=== PATIENT | female | born 1980 | race Caucasian/White ===

== ENCOUNTER 2017-01-23 00:09 | Emergency (ER) | payer OTHER, SELFPAY | END 2017-01-23 01:19 | disposition home or self-care (01) | PROVIDERS: Emergency Provider Emergency Medicine; Family Provider Emergency Medicine; Visit Provider Emergency Medicine | DX: J40 Bronchitis, not specified as acute or chronic (principal); F17.210 Nicotine dependence, cigarettes, uncomplicated; Z79.899 Other long term (current) drug therapy; Z88.0 Allergy status to penicillin; Z88.8 Allergy status to other drugs, medicaments and biological substances | CPT/HCPCS: 71020; 87275; 87276; 94640; 99282 ==

== ENCOUNTER → 2017-03-03 11:08 | Outpatient (REF) | payer OTHER, SELFPAY ==
[2017-03-03 14:06] LABS: Amphetamine/Metha Screen,Urine Negative ng/mL (<1000); Barbiturates Screen,Urine Negative ng/mL (<200); Benzodiazepines Screen,Urine Negative ng/mL (200); Cannabinoid Screen,Urine Negative ng/mL (<50); Cocaine Screen,Urine Negative ng/g (<300); Methadone Screen,Urine Negative ng/mL (<300); Opiate Screen,Urine Negative ng/mL (<300); Phencyclidine Screen,Urine Negative ng/mL (<25)
== END ==
LOC: LAB 11:08
PROVIDERS: Visit Provider Emergency Medicine
DX: Z79.899 Other long term (current) drug therapy (principal)
CPT/HCPCS: 80305

== ENCOUNTER → 2017-06-06 16:03 | Outpatient (CLI) | payer OTHER, SELFPAY ==
[2017-06-06 18:33] LABS: Amphetamine/Metha Screen,Urine Negative ng/mL (<1000); Barbiturates Screen,Urine Negative ng/mL (<200); Benzodiazepines Screen,Urine Negative ng/mL (200); Cannabinoid Screen,Urine Negative ng/mL (<50); Cocaine Screen,Urine Negative ng/g (<300); Methadone Screen,Urine Negative ng/mL (<300); Opiate Screen,Urine Negative ng/mL (<300); Phencyclidine Screen,Urine Negative ng/mL (<25)
[2017-06-06 18:36] LABS: Basophils # 0.1 K/mm3 (0-0.2); Basophils % 0.8 % (0.1-2.0); Eosinophils # 0.3 K/mm3 (0.0-0.4); Eosinophils % 2.9 % (0.1-12.0); Hematocrit 41.4 % (37.0-47.0); Hemoglobin 13.6 g/dL (12.2-16.2); Lymphocytes # 3.2 K/mm3 (0.7-4.5); Lymphocytes % 32.6 K/mm3 (10-50); Mean Corpuscular HGB Conc 32.8 g/dL (31.8-35.4); Mean Corpuscular Hemoglobin 27.7 pg (27.0-31.2); Mean Corpuscular Volume 84.5 fl (81-99); Mean Platelet Volume 8.5 fl (7.4-10.4); Monocytes # 0.5 K/mm3 (0.1-1.0); Monocytes % 5.4 % (1.7-9.3); Neutrophils # 5.7 K/mm3 (1.8-7.8); Neutrophils % 58.3 % (37.0-80.0); Platelet Count 290 K/mm3 (142-424); Red Blood Count 4.89 M/mm3 (4.20-5.40); Red Cell Distribution Width 14.6 % (11.5-17.5); White Blood Count 9.8 K/mm3 (4.8-10.8)
[2017-06-06 18:59] LABS: Alanine Aminotransferase 22 U/L (12-78); Albumin Level 3.8 gm/dL (3.4-5.0); Albumin/Globulin Ratio 1.1 (1.1-1.8); Alkaline Phosphatase 91 U/L (46-116); Anion Gap 15.1 mEq/L (5-15); Aspartate Amino Transferase 18 U/L (15-37); Bilirubin,Total 0.2 mg/dL (0.2-1.0); Blood Urea Nitrogen 8 mg/dL (7-18); Calcium 9.6 mg/dL (8.5-10.1); Carbon Dioxide 24 mmol/L (21.0-32.0); Chloride 105 mmol/L (98-107); Chol/HDL Ratio 6.5 (1-3.5); Cholesterol 188 mg/dL (140-200); Creatinine,Serum 0.92 mg/dL (0.55-1.02); Estimated Glomerular Filt Rate 69 ml/min (>60); GFR (African American) 83 ML/MIN (>60); Globulin 3.6 gm/dl (1.3-3.2); HDL Cholesterol 29 mg/dL (29-89); LDL Cholesterol 108 mg/dL (0-130); Potassium 4.1 mmoL/L (3.5-5.1); Sodium 140 mmol/L (136-145); T4 (Thyroxine) 7.3 ug/dl (4.7-13.3); Thyroid Stimulating Hormone 1.22 uIU/ml (0.358-3.740); Total Protein,Serum 7.4 gm/dL (6.4-8.2); Triglycerides 254 mg/dL (30-200); VLDL Cholesterol 51 mg/dL (0-40)
[2017-06-06 19:04] LABS: Glucose 92 mg/dL (74-106)
[2017-06-08 15:09] LABS: Hep A Ab, IgM Negative (Negative); Hepatitis B Core Antibody IgM Negative (Negative); Hepatitis B Surface Antigen Negative (Negative)
[2017-06-11 06:13] LABS: Hepatitis C Antibody <0.1 s/co ratio (0.0-0.9)
== END ==
PROVIDERS: Visit Provider Emergency Medicine
DX: I10 Essential (primary) hypertension (principal); F41.9 Anxiety disorder, unspecified; Z79.899 Other long term (current) drug therapy
CPT/HCPCS: 80053; 80061; 80074; 80305; 84436; 84443; 85025

== ENCOUNTER → 2017-10-24 10:00 | Outpatient (CLI) | payer OTHER, SELFPAY ==
[2017-10-24 18:21] LABS: Amphetamine/Metha Screen,Urine Negative ng/mL (<1000); Barbiturates Screen,Urine Negative ng/mL (<200); Benzodiazepines Screen,Urine Negative ng/mL (<200); Cannabinoid Screen,Urine Negative ng/mL (<50); Cocaine Screen,Urine Negative ng/mL (<300); Methadone Screen,Urine Negative ng/mL (<300); Opiate Screen,Urine Negative ng/mL (<300); Phencyclidine Screen,Urine Negative ng/mL (<25)
== END ==
PROVIDERS: Visit Provider Nurse Practitioner Family
DX: Z79.899 Other long term (current) drug therapy (principal)
CPT/HCPCS: 80305

== ENCOUNTER → 2018-01-20 18:21 | Outpatient (CLI) | payer OTHER, SELFPAY ==
[2018-01-20 20:05] LABS: Amphetamine/Metha Screen,Urine Negative ng/mL (<1000); Barbiturates Screen,Urine Negative ng/mL (<200); Benzodiazepines Screen,Urine Negative ng/mL (<200); Cannabinoid Screen,Urine Negative ng/mL (<50); Cocaine Screen,Urine Negative ng/mL (<300); Methadone Screen,Urine Negative ng/mL (<300); Opiate Screen,Urine Negative ng/mL (<300); Phencyclidine Screen,Urine Negative ng/mL (<25)
[2018-01-28 07:26] LABS: Alprazolam Negative (Cutoff=100); Benzodiazepines Positive ng/mL (Cutoff=100); Clonazepam Negative (Cutoff=100); Flurazepam Negative (Cutoff=100); Lorazepam Positive (.); Midazolam Negative (Cutoff=100); Temazepam Negative (Cutoff=100); Triazolam Negative (Cutoff=100)
== END ==
PROVIDERS: Visit Provider Nurse Practitioner Family
DX: F41.9 Anxiety disorder, unspecified (principal); Z79.899 Other long term (current) drug therapy
CPT/HCPCS: 80305; 80346

== ENCOUNTER 2018-01-26 04:54 | Observation (INO) ==
[2018-01-26 05:15] LABS: Microscopic, Urine URINE MICROSCOPIC (MICROSCOPIC)
[2018-01-26 05:16] LABS: Appearance,Urine CLEAR (Clear); Bilirubin,Urine Negative (Negative); Blood, Urine 1+ (Negative); Color,Urine YELLOW (Yellow); Glucose,Urine (UA) Negative (Negative); Ketones,Urine Negative (Negative); Leukocyte Esterase,Urine Negative (Negative); Protein,Urine Negative (Negative); Specific Gravity, Urine >= 1.030 (1.005-1.030); Urobilinogen,Urine 0.2 EU/dl (0.2)
[2018-01-26 05:18] LABS: Squamous Epithelial Cell,Urine 20-50 #/hpf (0-5)
[2018-01-26 05:19] LABS: Basophils # 0.1 K/mm3 (0-0.2); Basophils % 0.5 % (0.1-2.0); Eosinophils # 0.4 K/mm3 (0.0-0.4); Eosinophils % 2.2 % (0.1-12.0); Hematocrit 41.3 % (37.0-47.0); Lymphocytes # 5.5 K/mm3 (0.7-4.5); Lymphocytes % 31.5 % (10-50); Mean Corpuscular HGB Conc 31.5 g/dL (31.8-35.4); Mean Corpuscular Hemoglobin 28.6 pg (27.0-31.2); Mean Corpuscular Volume 90.9 fl (81-99); Mean Platelet Volume 7.8 fl (7.4-10.4); Monocytes # 0.8 K/mm3 (0.1-1.0); Monocytes % 4.4 % (1.7-9.3); Neutrophils # 10.7 K/mm3 (1.8-7.8); Neutrophils % 61.3 % (37.0-80.0); Platelet Count 310 K/mm3 (142-424); Red Blood Count 4.54 M/mm3 (4.20-5.40); Red Cell Distribution Width 14.5 % (11.5-17.5); White Blood Count 17.5 K/mm3 (4.8-10.8)
[2018-01-26 05:27] LABS: Albumin Level 3.6 gm/dL (3.4-5.0); Albumin/Globulin Ratio 0.8 (1.1-1.8); Anion Gap 15.6 mEq/L (5-15); Bilirubin,Total 0.1 mg/dL (0.2-1.0); Calcium 8.9 mg/dL (8.5-10.1); Globulin 4.3 gm/dl (1.3-3.2); Potassium 3.6 mmoL/L (3.5-5.1); Total Protein,Serum 7.9 gm/dL (6.4-8.2)
[2018-01-26 05:31] LABS: Eosinophils % 1 % (0-3); Lymphocytes % 25 % (10-50); Monocytes % 2 % (2-9); Neutrophils % 70 % (42-76); RBC Morphology Normal; Total Cells Counted 100; Toxic Granulation 1+
--- NOTE | 2018-01-26 08:10 | Emergency Department Note ---
ED Disposition Clinical Impression: Tobacco use Cholecystitis with cholelithiasis Qualifiers: Cholelithiasis location: gallbladder Cholecystitis acuity: acute Biliary obstruction: without biliary obstruction Qualified Code(s): K80.00 - Calculus of gallbladder with acute cholecystitis without obstruction Hypertension Qualifiers: Hypertension type: essential hypertension Qualified Code(s): I10 - Essential (primary) hypertension Disposition: Admitted as Observation Condition on Discharge: Good Instructions: DI for Acute Abdomen Referrals: Farrukh Gu MD [Primary Care Provider] - - Critical Care Critical Care Time: No Attestation: On 01/26/18, the high probability of a clinically significant, sudden or life threatening deterioration of the following system(s) required my full and direct attention, intervention and personal management. The time I documented below is in addition to time spent performing reported procedures but includes the following listed in this critical care notation. Medical Decision Making - Medical Records Medical records reviewed: Yes: I reviewed the patient's medical records. - Raheem Inquiry Pt receiving controlled substance: No Vital Signs: 01/26/18 04:55 01/26/18 04:57 01/26/18 05:55 Temperature 98.4 F 98.4 F Temperature Source Oral Oral Pulse Rate [Right Brachial] 88 88 88 Respiratory Rate 15 15 16 Blood Pressure [Right Arm] 159/94 H 159/94 H 152/72 H Blood Pressure Mean [Right Arm] 115 115 98 Blood Pressure Source [Right Arm] Automatic Cuff Blood Pressure Position [Right Arm] Supine 02 Sat by Pulse Oximetry 98 98 98 Oxygen Delivery Method Room Air 01/26/18 07:00 Temperature Temperature Source Pulse Rate [Right Brachial] 84 Respiratory Rate 15 Blood Pressure [Right Arm] 149/74 H Blood Pressure Mean [Right Arm] 99 Blood Pressure Source [Right Arm] Blood Pressure Position [Right Arm] 02 Sat by Pulse Oximetry 98 Oxygen Delivery Method - Lab Data Lab results reviewed: Yes: I reviewed the patient's lab results. Lab Results 01/26/18 05:05: Urine Color Yellow, Urine Appearance Clear, Urine pH 6.0, Ur Specific [place] >= 1.030, Urine Protein Negative, Urine Glucose (UA) Negative, Urine Ketones Negative, Urine Blood 1+, Urine Nitrate Negative, Urine Bilirubin Negative, Urine Urobilinogen 0.2, Ur Leukocyte Esterase Negative, Urine RBC 5- 10, Ur Squamous Epith Cells 20-50 01/26/18 05:05: WBC 17.5 H, RBC 4.54, Hgb 13.0, Hct 41.3, MCV 90.9, MCH 28.6, MCHC 31.5 L, RDW 14.5, Plt Count 310, MPV 7.8, Neut % (Auto) 61.3, Lymph % (Auto) 31.5, [place] % (Auto) 4.4, Eos % (Auto) 2.2, Baso % (Auto) 0.5, Neut # (Auto) 10.7 H, Lymph # (Auto) 5.5 H, [place] # (Auto) 0.8, Eos # (Auto) 0.4, Baso # (Auto) 0.1, Total Counted 100, Neutrophils % (Manual) 70, Band Neutrophils % 2.0, Lymphocytes % (Manual) 25, Monocytes % (Manual) 2, Eosinophils % (Manual) 1, Toxic Granulation 1+, Platelet Estimate Normal, RBC Morphology Normal 01/26/18 05:05: Urine HCG, Qual Negative 01/26/18 05:05: Sodium 137, Potassium 3.6, Chloride 103, Carbon Dioxide 22, Anion Gap 15.6 H, BUN 15, Creatinine 1.31 H, Estimated Creat Clear 55, Estimated GFR 45 L, Est GFR ( Amer) 55 L, Glucose 108 H, Calcium 8.9, Total Bilirubin 0.1 L, AST 17, ALT 29, Alkaline Phosphatase 100, Total Protein 7.9, Albumin 3.6, Globulin 4.3 H, Albumin/Globulin Ratio 0.8 L, Amylase 53, Lipase 141 Result diagrams: 01/26/18 05:05 01/26/18 05:05 Orders (Tests/Meds): ED MEDICATIONS Generic Name Dose Route Start Last Admin Trade Name Freq PRN Reason Stop Dose Admin Sodium Chloride 1,000 mls @ 999 mls/hr 01/26/18 05:15 01/26/18 05:13 Sod Chlor 0.9% 1000ml Bag IV 01/26/18 06:15 999 mls/hr .Q1H1M TANO Administration Discontinued Medications Generic Name Dose Route Start Last Admin Trade Name Freq PRN Reason Stop Dose Admin Famotidine 20 mg 01/26/18 05:03 01/26/18 05:12 Pepcid 20mg/2ml Vial IV 01/26/18 05:04 20 mg ONCE ONE Administration Ketorolac Tromethamine 30 mg 01/26/18 05:03 01/26/18 05:12 Toradol 30mg/Ml Vial IV 01/26/18 05:04 30 mg ONCE ONE Administration Metoclopramide HCl 10 mg 01/26/18 05:04 01/26/18 05:12 Reglan 10mg/2ml Vial IVP 01/26/18 05:05 10 mg ONCE ONE Administration Ondansetron HCl 4 mg 01/26/18 05:03 01/26/18 05:12 Zofran 4mg/2ml Vial IV 01/26/18 05:04 4 mg ONCE ONE Administration ORDERS Category Date Time Status CT abdomen pelvis wo con Stat Cat Scan 01/26/18 05:03 Taken US gallbladder Stat Exams 01/26/18 07:00 Ordered Urinalysis and Microscopic Stat Lab 01/26/18 05:05 Ordered - CT Data CT Scan: Abdomen, Pelvis Time Received: 08:[address] Reviewed: Yes: I have viewed the radiologist's interpretation Preliminary Findings: Abnormal (see report) - US Data US Images: Gallbladder ED US Reviewed: Yes: I have viewed radiologist's interpretation Preliminary Findings: Gall Bladder Stones, Thick Gall Bladder Wall - Physician Consults Physician Consulted: allran Reason -: Pt condition Nausea/Vomiting/Diarrhea HPI - General Chief complaint: Abdominal Pain Stated complaint: Upper Abdominal Pain Time Seen by Provider: 01/26/18 05:30 Mode of Arrival: Ambulatory Source of Information: Patient, Spouse, Medical Record Limitations: No Limitations Description of Symptoms (Recalled from ER Triage Doc. by RN): Pt c/o mid abdominal pain intermittenly for 2-3 days. Reports constipation, and low urine output. Reports this morning it woke her up with sharp excrutiating pain. Reports no difficulty with urination when she goes. Denies any n/v/d. - History of Present Illness HPI Narrative: increased rt upper abd pain over the last 3 days with n/v MD complaint: nausea, vomiting, abdominal pain Onset (ago): day(s) Associated Abdominal Pain: Yes Location of pain: RUQ Severity: moderate Quality: sharp Consistency: colicky Associated symptoms: nausea/vomiting - Related Data Previous Rx's Medication Instructions Recorded lisinopril 10 mg tablet 10 mg PO DAILY #90 tab 01/20/18 lorazepam 0.5 mg tablet 0.5 mg PO BID #60 tab 01/20/18 sertraline 25 mg tablet 50 mg PO QHS #30 tab 01/20/18 Allergies Allergy/AdvReac Type Severity Reaction Status Date / Time aspirin [ASPIRIN] Allergy Mild Verified 01/20/18 15:42 Penicillins Allergy Verified 01/20/18 15:42 zonisamide [From Zonegran] Allergy Hives Verified 01/20/18 15:42 [facility] History - Hepatitis A Screen Drug use history?: No High risk sexual behaviors?: No History of sexually transmitted infection?: No Currently employed?: No Childcare worker?: No Do you have indoor plumbing?: Yes Do you have electricity?: Yes Attestation statement:: This patient has been screened for Hepatitis A risk factors. I have reviewed the patient's past medical history: Yes Medical History: Reports:: Anxiety, Depression, Hypertension Denies:: Cancer, Diabetes Mellitus Type 1, Diabetes Mellitus Type 2, MRSA Other Medical History: Reports: Anemia Other Surgeries: Yes: Tubal Ligation, Other (ectopic preg, salpingectomy macho) Amputation: No Fractures: No Comment: anxiety, depression - Social History Smoking Status: Current every day smoker Tobacco Type: cigarettes Alcohol Intake: never Substance Use Type: denies use - Psychiatric History Expresses thoughts of harming self/others: None Suicide Plan Description: No Plan Pschychiatric History:: Reports:: Anxiety, Depression Family Hx:: Cancer, Heart Attack ROS Obtained: Yes All systems reviewed & no additional complaints - Constitutional Constitutional: Denies fever(s) - Eyes Eyes: Denies change in vision - ENT Ears, Nose, Mouth, and Throat: Denies sore throat - Cardiovascular Cardiovascular: Denies chest pain - Respiratory Respiratory: No cough - Gastrointestinal Gastrointestingal: Reports: as per HPI, abdominal pain, nausea, vomiting. Denies: black, tarry stools - Genitourinary Female Genitourinary: Denies hematuria - Musculoskeletal Musculoskeletal: Denies back pain - Integumentary/Breasts Skin/Breast: Denies rash - Neurologic Neurologic: Denies seizure-like activity Physical Exam - General General appearance: alert - Head Head exam: normocephalic - Eye Eye exam: Present: PERRL, EOMI - ENT ENT exam: Present: mucous membranes dry - Neck Neck exam: Present: trachea midline - Respiratory Respiratory exam: Present: normal lung sounds bilaterally. Absent: respiratory distress - Cardiovascular Cardiovascular exam: Present: regular rate. Absent: systolic murmur - Abdominal Exam Abdominal exam: Present: soft, tenderness Abdominal tenderness: Present: RUQ, moderate - Extremities Exam Extremities exam: Present: full ROM - Neurological Exam Neurological exam: Present: alert, oriented X3, CN II-XII intact - Psychiatric Psychiatric exam: Present: normal affect - Skin Skin exam: Absent: rash
--- NOTE | 2018-01-26 08:26 | Pharmacy Consult Notes ---
[facility] Pharmacy VTE Monitoring - Patient Demographics Admission date: 01/26/18 Report Date: 01/26/18 Time: 08:26 Allergies/Adverse Reactions: Patient Allergies aspirin [ASPIRIN] Allergy (Mild, Verified 01/20/18 15:42) Penicillins Allergy (Verified 01/20/18 15:42) zonisamide [From Zonegran] Allergy (Verified 01/20/18 15:42) Hives Height: 1.57 m Weight: 60.328 kg Patient Problems: Current Active Problems Cholecystitis with cholelithiasis (Acute) Tobacco use (Acute) Hypertension (Acute) - VTE Risk Labs: VTE Related Lab Results Hgb 13.0 g/dL (12.2-16.2) 01/26/18 05:05 Hct 41.3 % (37.0-47.0) 01/26/18 05:05 Plt Count 310 K/mm3 (142-424) 01/26/18 05:05 BUN 15 mg/dL (7-18) 01/26/18 05:05 Creatinine 1.31 mg/dL (0.55-1.02) H 01/26/18 05:05 Estimated Creat Clear 55 mL/min (50-200) 01/26/18 05:05 - Prophylaxis VTE Prophylaxis Ordered?: Yes Types of VTE Prophylaxis: TEDS Knee High Location of Applied Device: Bilateral Lower Extremeties - VTE Diagnosis Confirmed Treatment or plan recommended: Continue Current Treatment
--- NOTE | 2018-01-26 12:07 | History & Physical Report ---
*Admission Date: 01/26/18 *Chief complaint: abd pain *History of present illness: this wf with progressive upper abd pain with n/v but no melena -pt was seen in the ed with abn ct and gb u/s and had continued pain and was admitted for iv meds and surg eval [facility] History I have reviewed the patient's past medical history: Yes Medical History: Reports:: Anxiety, Depression, Hypertension Denies:: Cancer, Diabetes Mellitus Type 1, Diabetes Mellitus Type 2, MRSA Other Medical History: Reports: Anemia Other Surgeries: Yes: Hysterectomy-Partial, Tubal Ligation, Other (ectopic preg, salpingectomy jace) Amputation: No Fractures: No - *Social History Educational Level: Completed GED/General Educational Development Smoking Status: Current every day smoker Tobacco Type: cigarettes # Packs/Day (cigarettes): 1 Alcohol Intake: never Substance Use Type: denies use Occupational Status: employed Household Members: spouse - Psychiatric History Expresses thoughts of harming self/others: None Suicide Plan Description: No Plan Pschychiatric History:: Reports:: Anxiety, Depression *Family Hx:: Cancer, Heart Attack Review of Systems - Review of Systems Review of systems:: pertinent systems reviewed and negative unless documented below - Constitutional Denies fever(s) - Eyes Denies blurry vision, Denies change in vision - ENT Denies sore throat - *Cardiovascular Denies chest pain - *Respiratory Denies cough - *Gastrointestinal Reports abdominal pain, Reports nausea, Reports vomiting - *Genitourinary Denies blood in urine - *Musculoskeletal Denies joint pain - Integumentary/Breasts Denies rash - *Neurologic Denies seizure-like activity - Psychiatric Denies anxiety Meds Home Medications Medication Instructions Recorded Confirmed Type Sertraline HCl 50 mg PO HS 01/26/18 01/26/18 History Allergies Allergy/AdvReac Type Severity Reaction Status Date / Time aspirin [ASPIRIN] Allergy Mild Verified 01/20/18 15:42 Penicillins Allergy Verified 01/20/18 15:42 zonisamide [From Zonegran] Allergy Hives Verified 01/20/18 15:42 Exam Vital signs and Labs for Last 24 Hours: Temp Pulse Resp BP Pulse Ox 98.3 F 81 16 138/81 100 01/26/18 10:06 01/26/18 10:06 01/26/18 10:06 01/26/18 10:06 01/26/18 10:06 Laboratory Results - last 24 hr 01/26/18 05:05: Urine Color Yellow, Urine Appearance Clear, Urine pH 6.0, Ur Specific [place] >= 1.030, Urine Protein Negative, Urine Glucose (UA) Negative, Urine Ketones Negative, Urine Blood 1+, Urine Nitrate Negative, Urine Bilirubin Negative, Urine Urobilinogen 0.2, Ur Leukocyte Esterase Negative, Urine RBC 5- 10, Ur Squamous Epith Cells 20-50 01/26/18 05:05: WBC 17.5 H, RBC 4.54, Hgb 13.0, Hct 41.3, MCV 90.9, MCH 28.6, MCHC 31.5 L, RDW 14.5, Plt Count 310, MPV 7.8, Neut % (Auto) 61.3, Lymph % (Auto) 31.5, [place] % (Auto) 4.4, Eos % (Auto) 2.2, Baso % (Auto) 0.5, Neut # (Auto) 10.7 H, Lymph # (Auto) 5.5 H, [place] # (Auto) 0.8, Eos # (Auto) 0.4, Baso # (Auto) 0.1, Total Counted 100, Neutrophils % (Manual) 70, Band Neutrophils % 2.0, Lymphocytes % (Manual) 25, Monocytes % (Manual) 2, Eosinophils % (Manual) 1, Toxic Granulation 1+, Platelet Estimate Normal, RBC Morphology Normal 01/26/18 05:05: Urine HCG, Qual Negative 01/26/18 05:05: Sodium 137, Potassium 3.6, Chloride 103, Carbon Dioxide 22, Anion Gap 15.6 H, BUN 15, Creatinine 1.31 H, Estimated Creat Clear 55, Estimated GFR 45 L, Est GFR ( Amer) 55 L, Glucose 108 H, Calcium 8.9, Total Jace irubin 0.1 L, AST 17, ALT 29, Alkaline Phosphatase 100, Total Protein 7.9, Albumin 3.6, Globulin 4.3 H, Albumin/Globulin Ratio 0.8 L, Amylase 53, Lipase 141 I & O for Last 24 hours: Intake & Output 01/24/18 01/25/18 01/26/18 01/27/18 11:59 11:59 11:59 11:59 Intake Total 1000 / 1000 Balance 1000 / 1000 Weight 137 lb 2 oz - Constitutional no acute distress - *Routine HEENT Exam Head: Present: normocephalic Eye: Present: EOMI, PERRL. Absent: conjunctival icterus ENT: Present: mucous membranes dry - *Routine Neck Exam Present: supple - *Routine Respiratory Exam Present: CTA bilaterally - *Routine Cardiovascular Exam Present: RRR. Absent: murmur - *Routine Abdominal Exam Present: soft, tenderness Comments: tender griffith sign - *Routine Extremities Exam Present: full ROM - *Routine Skin Exam Present: intact - *Routine Neurological Exam Present: alert, oriented X3, CN II-XII intact - Routine Psychiatric Exam Present: normal affect Assessment and Plan (1) Cholecystitis with cholelithiasis Current visit: Yes Status: Acute Qualifiers: Cholelithiasis location: gallbladder Cholecystitis acuity: acute Biliary obstruction: without biliary obstruction Qualified Code(s): K80.00 - Calculus of gallbladder with acute cholecystitis without obstruction Category: Medical Code(s): K80.10 - Calculus of gallbladder with chronic cholecystitis without obstruction
--- NOTE | 2018-01-26 14:14 | Progress Note ---
[facility] Anesthesia Checklist - Structural Data Admitted From: Inpatient Planned Operative Procedure/s: lap avery Consent for Planned Operative Procedure(s) Verified: Yes - Airway Assessment C-Spine Mobility Assessed: Yes TMJ Mobility Assessed: Yes Dentition: Edentulous - Neurological Assessment Level of Consciousness: Awake, Alert, Appropriate - Anesthesia Plan Anesthesia Risk discussed: Yes Anesthesia Plan: Verified ASA Class: II Anesthesia Type: General [facility] History I have reviewed the patient's past medical history: Yes Medical History: Reports:: Anxiety, Depression, Hypertension Denies:: Cancer, Diabetes Mellitus Type 1, Diabetes Mellitus Type 2, MRSA Other Medical History: Reports: Anemia Other Surgeries: Yes: Hysterectomy-Partial, Tubal Ligation, Other (ectopic preg, salpingectomy macho) Amputation: No Fractures: No - *Social History Educational Level: Completed GED/General Educational Development Smoking Status: Current every day smoker Tobacco Type: cigarettes # Packs/Day (cigarettes): 1 Alcohol Intake: never Substance Use Type: denies use Occupational Status: employed Household Members: spouse - Psychiatric History Expresses thoughts of harming self/others: None Suicide Plan Description: No Plan Pschychiatric History:: Reports:: Anxiety, Depression *Family Hx:: Cancer, Heart Attack
--- NOTE | 2018-01-26 16:07 | Operative Note ---
Date of procedure: 01/26/18 Pre-op Diagnosis:: Symptomatic gallstones Post-op Diagnosis:: Acute calculus cholecystitis Procedure performed:: Laparoscopic cholecystectomy Surgeon:: Juarez Ryan MD PROCESS PLANNER:: Viral Garcia Anesthesia: GETRomi Estimated blood loss (mL): 25 Clinical Note:: Patient is a 37-year-old white female. For a couple of days she has had some vague epigastric and right upper quadrant abdominal pain. However she had severe acute exacerbation early this morning. She presented to the emergency department. She underwent CT scan of the abdomen and pelvis which revealed findings of gallstones with gallbladder distention. She had a gallbladder ultrasound performed which revealed distended gallbladder with gallstones. Surgical consultation was obtained. Patient remained tender. Plan was made for admission for clinical cholecystitis for planned cholecystectomy. Operative findings:: She had appreciable hepatomegaly. She had a distended gallbladder. There was some minor pericholecystic fluid and a moderate amount of edema in the tissues around the gallbladder. There were a couple of moderately large gallstones. Operative note:: Consent was obtained and patient was taken to the operating room. She was given preoperative intravenous antibiotics. In the operating room she was placed in a supine position. General anesthesia was induced via endotracheal tube. Her abdomen was prepped and draped in the standard surgical fashion. Subumbilical skin incision was made in a previous laparoscopy scar. While performing abdominal wall lift Veress needle was inserted and CO2 pneumoperitoneum was achieved to 15 mmHg. 10/11 mm optical trocar was inserted at the umbilicus. Intraperitoneal contents were visualized. She was positioned in reverse Trendelenburg with left side down. A couple of 5 mm trochars were inserted in the right abdomen inferior to the edge of the liver which was appreciably enlarged. 10 mm trocar was inserted in the epigastrium. Gallbladder was identified and grasped and retracted anteriorly and superiorly over the dome of the liver. There were omental adhesions to the gallbladder which were taken down using blunt dissection. Neck of the gallbladder was retracted anterolaterally. The common duct was actually tented up and initially, for some time, discerning the anatomy was challenging. Dissection was carried out and ultimately the cystic duct and cystic artery were identified as the neck of the gallbladder was distended and there was an appreciable amount of edema in the surrounding tissues. Cystic duct was multiply clipped and then divided. Cystic artery was carefully coagulated and then divided. Gallbladder was dissected free from the liver in a retrograde fashion using EDUARDA ultrasonic harmonic luis f. Gallbladder was placed within an Endo Catch retrieval device and removed from the peritoneal cavity via the umbilical trocar site which required some stretching of the fascial incision for delivery. There was some minor oozing from the liver edge of the gallbladder fossa and good hemostasis was achieved with judicious use of laparoscopic electrocautery. Gallbladder fossa and perihepatic space were irrigated and aspirated until clear. Trochars were removed as CO2 pneumoperitoneum was evacuated. Fascia at the umbilicus was closed with 0 Vicryl [id number] suture as well as interrupted 0 Vicryl. Local anesthetic was infiltrated. Skin incisions were closed with 4-0 Monocryl in a subcuticular fashion. Steri-Strips and dressings were applied. Condition: stable Disposition: PACU Specimens:: Gallbladder and contents Complications:: None immediately apparent
--- NOTE | 2018-01-26 16:17 | Progress Note ---
[facility] Anesthesia Record Part II Discharge Time: 16:45 Destination: floor PACU nurse assessment reviewed?: Yes Patient Condition:: Good Anesthesia Complications:: None
--- NOTE | 2018-01-26 16:17 | Progress Note ---
[facility] Anesthesia Record Part I Intake, IV Amount: 2,000 Estimated blood loss (mL): 0 Urine output (mL): 0 Blood Pressure: 152/98 SaO2: 94 Pulse Rate: 103 Respiratory Rate: 12 Temperature: 98.5 F Patient is:: Awake, Stable Stable to PACU at:: 16:15
[2018-01-27 05:59] LABS: Basophils % 0.1 % (0.1-2.0); Eosinophils # 0.1 K/mm3 (0.0-0.4); Eosinophils % 0.8 % (0.1-12.0); Hematocrit 34.8 % (37.0-47.0); Hemoglobin 10.9 g/dL (12.2-16.2); Lymphocytes # 1.3 K/mm3 (0.7-4.5); Lymphocytes % 7.4 % (10-50); Mean Corpuscular HGB Conc 31.3 g/dL (31.8-35.4); Mean Corpuscular Hemoglobin 28.2 pg (27.0-31.2); Mean Corpuscular Volume 90.3 fl (81-99); Mean Platelet Volume 7.8 fl (7.4-10.4); Monocytes # 0.4 K/mm3 (0.1-1.0); Monocytes % 2.3 % (1.7-9.3); Neutrophils # 15.3 K/mm3 (1.8-7.8); Neutrophils % 89.4 % (37.0-80.0); Platelet Count 275 K/mm3 (142-424); Red Blood Count 3.85 M/mm3 (4.20-5.40); Red Cell Distribution Width 14.7 % (11.5-17.5); White Blood Count 17.1 K/mm3 (4.8-10.8)
[2018-01-27 06:04] LABS: Anion Gap 13.8 mEq/L (5-15); Calcium 8.4 mg/dL (8.5-10.1); Potassium 4.8 mmoL/L (3.5-5.1)
--- NOTE | 2018-01-27 06:47 | Progress Note ---
Subjective Patient reports: feels better Exam Vital signs and Labs for Last 24 Hours: Temp Pulse Resp BP Pulse Ox 98.3 F 98 H 15 135/85 97 01/27/18 03:46 01/27/18 03:46 01/27/18 03:46 01/27/18 03:46 01/27/18 03:46 Laboratory Results - last 24 hr 01/27/18 05:45: WBC 17.1 H, RBC 3.85 L, Hgb 10.9 L, Hct 34.8 L, MCV 90.3, MCH 28.2, MCHC 31.3 L, RDW 14.7, Plt Count 275, MPV 7.8, Neut % (Auto) 89.4 H, Lymph % (Auto) 7.4 L, [place] % (Auto) 2.3, Eos % (Auto) 0.8, Baso % (Auto) 0.1, Neut # (Auto) 15.3 H, Lymph # (Auto) 1.3, [place] # (Auto) 0.4, Eos # (Auto) 0.1, Baso # (Auto) 0.0 01/27/18 05:45: Sodium 138, Potassium 4.8 D, Chloride 106, Carbon Dioxide 23, Anion Gap 13.8, BUN 12, Creatinine 1.10 H, Estimated Creat Clear 70, Estimated GFR 56 L, Est GFR ( Amer) 67 D, Glucose 130 H, Calcium 8.4 L I & O for Last 24 hours: Intake & Output 01/24/18 01/25/18 01/26/18 01/27/18 11:59 11:59 11:59 11:59 Intake Total 1000 / 1000 4355 / 4355 Balance 1000 / 1000 4355 / 4355 Weight 137 lb 2 oz 140 lb 8 oz - *Routine Abdominal Exam Present: soft Comments: Dressings had some serosanguineous drainage. Steri-strips intact. Progress Note: A&P Assessment and Plan for All Diagnoses:: Okay for discharge home. Follow-up in about 2-3 weeks.
[2018-01-27 07:50] LABS: Lymphocytes % 7 % (10-50); Monocytes % 1 % (2-9); Neutrophils % 92 % (42-76); Total Cells Counted 100
--- NOTE | 2018-01-27 09:07 | Discharge Summary ---
General - General Admission date:: 01/26/18 Discharge date: 01/27/18 HPI HPI: this wf with progressive upper abd pain with n/v but no melena -pt was seen in the ed with abn ct and gb u/s and had continued pain and was admitted for iv meds and surg eval Hospital Course Hospital Course: Gallbladder removal-see op note Surgery consult-see note Will discharge home today follow-up with Dr. Ryan in 2-3 weeks. Objective Vital signs: Temp Pulse Resp BP Pulse Ox 98.4 F 100 H 17 157/90 H 100 01/27/18 08:00 01/27/18 08:00 01/27/18 08:00 01/27/18 08:00 01/27/18 08:00 no acute distress - *Routine HEENT Exam Head: Present: normocephalic Eye: Present: PERRL ENT: Present: mucous membranes moist - *Routine Respiratory Exam Present: CTA bilaterally - *Routine Cardiovascular Exam Present: RRR - *Routine Abdominal Exam Present: soft, normoactive bowel sounds, tenderness Comments: 4 surgical incisions with Steri-Strips in place no redness or drainage noted - *Routine Extremities Exam Present: full ROM - *Routine Skin Exam Comments: Surgery incisions with Steri-Strips no redness or drainage noted - *Routine Neurological Exam Present: alert, oriented X3 - Routine Psychiatric Exam Present: normal affect Results Labs on day of discharge: Labs from last 24 hours 01/27/18 01/27/18 05:45 05:45 WBC 17.1 H RBC 3.85 L Hgb 10.9 L Hct 34.8 L MCV 90.3 MCH 28.2 MCHC 31.3 L RDW 14.7 Plt Count 275 MPV 7.8 Neut % (Auto) 89.4 H Lymph % (Auto) 7.4 L Craig % (Auto) 2.3 Eos % (Auto) 0.8 Baso % (Auto) 0.1 Neut # (Auto) 15.3 H Lymph # (Auto) 1.3 Craig # (Auto) 0.4 Eos # (Auto) 0.1 Baso # (Auto) 0.0 Total Counted 100 Neutrophils % (Manual) 92 H Lymphocytes % (Manual) 7 L Monocytes % (Manual) 1 L Platelet Estimate Normal Sodium 138 Potassium 4.8 D Chloride 106 Carbon Dioxide 23 Anion Gap 13.8 BUN 12 Creatinine 1.10 H Estimated Creat Clear 70 Estimated GFR 56 L Est GFR ( Amer) 67 D Glucose 130 H Calcium 8.4 L - Additional Comments Rounded with Dr. Gu all orders per Riccardo DS: Diagnosis - Discharge Diagnosis (1) Cholecystitis with cholelithiasis Status: Acute Discharge Plan - Patient Discharge Instructions ACTIVITY: Continue current activity DIET: continue same diet - Follow up Plan Follow up with: Juraez Ryan MD [Staff Physician] - 02/13/18 Disposition: Home, Self-Long-Term Medications: Home Medications Medication Instructions Recorded Confirmed Type Sertraline HCl 50 mg PO HS 01/26/18 01/26/18 History Prescriptions/Medication Reconciliation: New Hydrocod/Acet 5/325 mg [[place] 5/325mg tablet] 1 - 2 tab PO Q6HP PRN #21 tab PRN Reason: Moderate Pain Continue lisinopril 10 mg tablet 10 mg PO DAILY #90 tab lorazepam 0.5 mg tablet 0.5 mg PO BID #60 tab Sertraline HCl 50 mg PO HS
== END 2018-01-27 10:00 | disposition home or self-care (01) ==
LOC: 2ND 04:54 → ER 04:54 → 2ND 09:44
PROVIDERS: ADMIT Emergency Medicine; ATTEND Emergency Medicine

== ENCOUNTER → 2018-05-05 14:25 | Outpatient (CLI) | payer OTHER, SELFPAY ==
[2018-05-05 14:34] LABS: Basophils # 0.1 K/mm3 (0-0.2); Basophils % 0.7 % (0.1-2.0); Eosinophils # 0.3 K/mm3 (0.0-0.4); Eosinophils % 2.4 % (0.1-12.0); Hematocrit 40.2 % (37.0-47.0); Lymphocytes # 3.2 K/mm3 (0.7-4.5); Lymphocytes % 30.4 % (10-50); Mean Corpuscular HGB Conc 32.2 g/dL (31.8-35.4); Mean Corpuscular Hemoglobin 27.9 pg (27.0-31.2); Mean Corpuscular Volume 86.5 fl (81-99); Mean Platelet Volume 8.3 fl (7.4-10.4); Monocytes # 0.4 K/mm3 (0.1-1.0); Neutrophils # 6.6 K/mm3 (1.8-7.8); Neutrophils % 62.4 % (37.0-80.0); Platelet Count 315 K/mm3 (142-424); Red Blood Count 4.65 M/mm3 (4.20-5.40); Red Cell Distribution Width 14.9 % (11.5-17.5); White Blood Count 10.6 K/mm3 (4.8-10.8)
[2018-05-05 15:22] LABS: Amphetamine/Metha Screen,Urine Negative ng/mL (<1000); Barbiturates Screen,Urine Negative ng/mL (<200); Benzodiazepines Screen,Urine Negative ng/mL (<200); Cannabinoid Screen,Urine Negative ng/mL (<50); Cocaine Screen,Urine Negative ng/mL (<300); Methadone Screen,Urine Negative ng/mL (<300); Opiate Screen,Urine Negative ng/mL (<300); Phencyclidine Screen,Urine Negative ng/mL (<25)
[2018-05-05 15:25] LABS: Alanine Aminotransferase 29 U/L (12-78); Albumin Level 3.7 gm/dL (3.4-5.0); Albumin/Globulin Ratio 0.9 (1.1-1.8); Alkaline Phosphatase 98 U/L (46-116); Anion Gap 17.1 mEq/L (5-15); Aspartate Amino Transferase 18 U/L (15-37); Bilirubin,Total 0.2 mg/dL (0.2-1.0); Blood Urea Nitrogen 10 mg/dL (7-18); Calcium 8.9 mg/dL (8.5-10.1); Carbon Dioxide 23 mmol/L (21.0-32.0); Chloride 104 mmol/L (98-107); Chol/HDL Ratio 7.9 (1-3.5); Cholesterol 221 mg/dL (140-200); Creatinine,Serum 0.99 mg/dL (0.55-1.02); Estimated Glomerular Filt Rate 63 ml/min (>60); Free T4 (Free Thyroxine) 0.91 ng/dl (0.76-1.46); GFR (African American) 76 ML/MIN (>60); Globulin 3.9 gm/dl (1.3-3.2); Glucose 84 mg/dL (74-106); HDL Cholesterol 28 mg/dL (29-89); LDL Cholesterol 147 mg/dL (0-130); Potassium 4.1 mmoL/L (3.5-5.1); Sodium 140 mmol/L (136-145); Total Protein,Serum 7.6 gm/dL (6.4-8.2); Triglycerides 232 mg/dL (30-200); VLDL Cholesterol 46 mg/dL (0-40)
[2018-05-07 12:58] LABS: Vitamin D 25 Hydroxy 10.1 ng/mL (30.0-100.0)
== END ==
LOC: LAB.DROPOF 14:26
PROVIDERS: Visit Provider Emergency Medicine
DX: Z79.899 Other long term (current) drug therapy (principal); I10 Essential (primary) hypertension
CPT/HCPCS: 80053; 80061; 80305; 82652; 84439; 84443; 85025

== ENCOUNTER → 2018-09-01 17:58 | Outpatient (CLI) | payer OTHER, SELFPAY ==
[2018-09-01 19:28] LABS: Amphetamine/Metha Screen,Urine Negative ng/mL (<1000); Barbiturates Screen,Urine Negative ng/mL (<200); Benzodiazepines Screen,Urine Negative ng/mL (<200); Cannabinoid Screen,Urine Negative ng/mL (<50); Cocaine Screen,Urine Negative ng/mL (<300); Methadone Screen,Urine Negative ng/mL (<300); Opiate Screen,Urine Negative ng/mL (<300); Phencyclidine Screen,Urine Negative ng/mL (<25)
== END ==
LOC: LAB.DROPOF 17:59
PROVIDERS: Visit Provider Nurse Practitioner Family
DX: Z79.899 Other long term (current) drug therapy (principal)
CPT/HCPCS: 80305

== ENCOUNTER → 2019-01-04 13:31 | Outpatient (CLI) | payer OTHER, SELFPAY ==
[2019-01-04 15:30] LABS: Amphetamine/Metha Screen,Urine Negative ng/mL (<1000); Barbiturates Screen,Urine Negative ng/mL (<200); Benzodiazepines Screen,Urine Negative ng/mL (<200); Cannabinoid Screen,Urine Negative ng/mL (<50); Cocaine Screen,Urine Negative ng/mL (<300); Methadone Screen,Urine Negative ng/mL (<300); Opiate Screen,Urine Negative ng/mL (<300); Phencyclidine Screen,Urine Negative ng/mL (<25)
[2019-01-08 04:30] LABS: Alprazolam Negative (Cutoff=100); Benzodiazepines Positive ng/mL (Cutoff=100); Clonazepam Negative (Cutoff=100); Flurazepam Negative (Cutoff=100); Lorazepam Positive (.); Midazolam Negative (Cutoff=100); Temazepam Negative (Cutoff=100); Triazolam Negative (Cutoff=100)
== END ==
LOC: LAB.DROPOF 13:32
PROVIDERS: Visit Provider Nurse Practitioner Family
DX: Z79.899 Other long term (current) drug therapy (principal)
CPT/HCPCS: 80305; 80346

== ENCOUNTER → 2019-10-12 10:19 | Outpatient (CLI) | payer BC, SELFPAY ==
--- NOTE | 2019-10-12 10:19 | MM_ITS ---
PROCEDURE: MM DIG SCREENING MAMM BI W/CAD Digital Breast Tomosynthesis Included CLINICAL INDICATION: screening There is no personal or family history of breast cancer. COMPARISON: This is a baseline screening exam, patient without complaints TECHNIQUE: Standard CC and MLO images and 3D Tomosynthesis was obtained. R2 CAD reviewed. FINDINGS: Diffuse fibroglandular densities are seen in the central portions of both breast slightly more prominent right breast than left. There is no suspicious lesion in either breast and no suspicious microcalcifications. IMPRESSION: Moderate diffuse breast density with no suspicious lesions seen BI-RAD Category: 1 Negative FOLLOW-UP: 1YR 1 Year Follow-up (A letter has been sent to the patient regarding results of the study.) Dictated by: Dr. Cruzito Lewis MD 10/12/2019 11:19 Dr. Cruzito Lewis MD in [place] 10/12/2019 11:19
== END ==
PROVIDERS: PCP Emergency Medicine; Visit Provider Emergency Medicine
DX: Z12.31 Encounter for screening mammogram for malignant neoplasm of breast (principal)
CPT/HCPCS: 77063; 77067

== ENCOUNTER 2019-10-17 14:54 | Emergency (ER) | payer OTHER, BC, SELFPAY ==
[2019-10-17 15:02] VITALS: BP 170/91; PULSE 100; RESP 18; O2SAT 99; BMI 25.2
--- NOTE | 2019-10-17 15:06 | XR_ITS ---
PROCEDURE: XR KNEE RT 3V CLINICAL INDICATION: fall COMPARISON: No exams were available for comparison FINDINGS: No fracture or dislocation. No lytic or blastic change. There is normal mineralization. The joint spaces are well-preserved. No significant degenerative/arthritic changes. No erosive changes evident. Other findings:None. IMPRESSION: No acute findings. Dictated by: Dr. Cruzito Lewis MD 10/17/2019 16:49 Dr. Cruzito Lewis MD in [place] 10/17/2019 16:49
--- NOTE | 2019-10-17 15:08 | HMH.EDUTC ---
[facility] [place] Disposition Clinical Impression: Knee sprain Qualifiers: Encounter type: initial encounter Involved ligament of knee: other ligament Laterality: right Qualified Code(s): S83.8X1A - Sprain of other specified parts of right knee, initial encounter Disposition: Home, Self-Care Condition on Discharge: Good Instructions: How To Perform RICE (Rest, Ice, Compress, Elevate) Additional Instructions: *weight bearing as tolerated with crutches *RICE, Rest the extremity, Ice 15-20 minutes 3-4 times daily, Compress- wear the pedro wrap as discussed as much as possible to help reduce swelling and pain, Elevate the extremity when at rest *Pedro wrap/knee immobilizer is for support and help control swelling, use it except in the shower. Be sure that is not to tight but not to loose either *Elevate when resting *Ibuprofen every 6-8 hours as needed for pain an inflammation if you can take it if you cannot take it or allergic take Tylenol as directed on the package to help with pain Immediately follow up with your family doctor for new or worsening of symptoms, or no noticeable improvement over the next 3-5 days You may call back later this evening to see if the Radiologist has read your xray and what the result was Return if needed Follow up with Family Doctor for further evaluation and treatment if needed Follow up with Orthopedics if no improvement or any worsening of symptoms Referrals: Farrukh Gu MD [Primary Care Provider] - As needed Becky White MD [Physician] - As needed Time of Disposition: 15:32 Medical Decision Making - Raheem Inquiry Pt receiving controlled substance: No Raheem was queried for this patient: No Vital Signs: 10/17/19 15:02 10/17/19 15:36 Temperature 98.1 F Temperature Source Oral Pulse Rate 100 H Pulse Rate [Radial] 100 H Respiratory Rate 18 18 Blood Pressure 170/91 H Blood Pressure [Right Arm] 170/91 H Blood Pressure Mean [Right Arm] 117 Blood Pressure Source Automatic Cuff Blood Pressure Source [Right Arm] Automatic Cuff Blood Pressure Position Sitting Blood Pressure Position [Right Arm] Sitting 02 Sat by Pulse Oximetry 99 Oxygen Delivery Method Room Air Room Air - Radiology Data #1 Image(s): Knee Image Reviewed: Yes I reviewed the patient's radiology image Preliminary Findings: No Fracture Seen Will place in knee immobilizer and crutches and have patient follow up with Orthopedics [facility] [place] HPI - General Stated complaint: ao 0906 @ 1330 injury R knee Time Seen by Provider: 10/17/19 15:08 Mode of Arrival: Wheelchair Source of Information: Patient Limitations: No Limitations Description of Symptoms (Recalled from Triage Doc. by RN): states that she twisted her ankle at work and her right knee popped and is hurting. States that the ankle does not hurt. HEENT Symptoms (Recalled from RN notes): No Resp Symptoms (Recalled from RN notes): No Skin Symptoms (Recalled from RN notes): No MS Symptoms (Recalled from RN notes): Yes Functional Status (Recalled from RN notes): wnl - History of Present Illness Provider Complaint: Patient states that she was at work and was coming down ladder, States that as she stepped her right leg down and placed weight on it someone at work moved the ladder and her right ankle twisted and put pressure on her right knee and she felt a pop and ever since she hasnt been able to walk or bare weight on her right knee without severe pain so her work made her come and get checked out - Related Data Previous Rx's Medication Instructions Recorded atorvastatin 10 mg tablet 10 mg PO QHS #90 tab 06/14/19 omeprazole 20 mg capsule,delayed 20 mg PO DAILY #90 cap 08/12/19 release sertraline 25 mg tablet 50 mg PO HS #60 tab 09/17/19 lorazepam 0.5 mg tablet 0.5 mg PO BID #60 tab 09/24/19 Allergies Allergy/AdvReac Type Severity Reaction Status Date / Time aspirin [ASPIRIN] Allergy Mild Verified 10/07/19 10:49 Penicillins Allergy Verified 10/07/19
[2019-10-17 15:36] VITALS: BP 170/91; PULSE 100; RESP 18; TEMP 36.7; O2SAT 99
== END 2019-10-17 15:38 | disposition home or self-care (01) ==
PROVIDERS: Emergency Provider Nurse Practitioner; PCP Emergency Medicine
DX: S83.8X1A Sprain of other specified parts of right knee, initial encounter (principal); X50.1XXA Overexertion from prolonged static or awkward postures, initial encounter; Y92.69 Other specified industrial and construction area as the place of occurrence of the external cause; Y99.0 Civilian activity done for income or pay
CPT/HCPCS: 29505; 73562; 99201; 99202

== ENCOUNTER 2019-10-19 08:00 | Outpatient (RCR) | payer BC, SELFPAY ==
--- NOTE | 2019-10-12 11:21 | HMH.PTOPEV ---
PT Outpatient Evaluation Rehab PT Outpatient Evaluation Start: 10/12/19 11:12 Freq: Status: Active Protocol: Document 10/12/19 11:12 MASON (Rec: 10/12/19 11:21 MASON [id number]) Electronically Signed By Sagar Mathis, PT 10/12/19 11:12 Outpatient Therapy Subjective History Subjective History Pt reports h/o chronic LBP beginning ~1 yr ago of insidious onset. 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 Chief Complaint Pain,Stiff,Paresthesia, Weakness Symptom Type Ache,Sharp,Dull,Stabbing, Burning Symptoms Relieved By Rest/Positioning,Prescription Meds Symptoms Aggravated By Standing,Walking,Lifting Prior Functional Limitations Lifting,Housework Current Functional Limitations Lifting,Housework,Standing, Walking Symptom Description Constant but Variable Level of pain today (0-10) 3 Pain scale - at its best (0-10) 3 Pain scale - at its worst (0-10) 10 Lumbopelvic Eval Posture Thoracic Spine Posture Standing Position Neutral Lumbar Spine Posture Standing Position Neutral Assistive device Assistive Devices None / NA Gait Observation General Gait Pattern Observation No Deviations/Normal Palapation tenderness right paraspinal tenderness Yes: 1-2/4 Lumbar/Sacral Palpation Findings Tenderness left lumbar spinal tenderness Yes: 3/4 paraspinal tenderness Yes: 3/4 buttock tenderness Yes: 1-2/4 Lumbar/Sacral Palpation Findings Tenderness,Trigger Point, Muscle Guarding Accessory Movement L-spine Vertebrae Accessory Movements [employer] [place] that Elicit Symptoms L2 bilateral L3 bilateral L4 bilateral L5 bilateral Range of Motion Lumbar Spine Active Flexion Range of 0-45 Motion (degrees) Lumbar Spine Active Extension Range of 0 Motion (degrees) Left Lumbar Spine Lateral Flexion Active 0-15 Range of Motion (degrees) Right Lumbar Spine Lateral Flexion 0-20 Active Range of Motion (degrees) Lumbar Spine ROM Limitations Pain Manual Muscle Test Right Knee Extension Strength Grade 5 Normal Knee Flexion Strength Grade 5 Normal Hip Flexion Strength Grade 5 Normal Extensor Hallucis Longus Strength Grade 5 N
== END 2019-10-19 09:00 | disposition home or self-care (01) ==
LOC: PT 08:00
PROVIDERS: PCP Emergency Medicine; Visit Provider Emergency Medicine
DX: M54.5 Low back pain (principal)
CPT/HCPCS: 97163

== ENCOUNTER → 2019-11-02 12:47 | Outpatient (CLI) | payer OTHER, SELFPAY ==
--- NOTE | 2019-11-02 12:51 | MR_ITS ---
PROCEDURE: MR KNEE RT WO CON CLINICAL INDICATION: PAIN IN RIGHT KNEE stepped off ladder at work and twisted rt knee and heard a pop. unable to bend knee. prior x-ray 10-17-19 COMPARISON: CR XR KNEE RT 3V from 10/17/2019 TECHNIQUE: Routine multiplanar multi echo sequences are performed without gadolinium enhancement. FINDINGS: There is some ill definition of the ACL which could be due to low-grade injury. A complete tear is not felt to be present. The PCL appears intact. The collateral ligaments, patellar tendon, and quadriceps tendon appear intact. Patellar cartilage is preserved.. No evidence of meniscal tear. There is a small amount fluid along the lateral meniscus posteriorly and along the lateral aspect of the knee joint. IMPRESSION: 1. Possible low-grade injury of the ACL 2. Small knee joint effusion. 3. Otherwise negative Dictated by: Willam Boo MD 11/04/2019 12:32 Willam Boo MD in [place] 11/04/2019 12:32
== END ==
PROVIDERS: PCP Emergency Medicine; Visit Provider Orthopaedic Surgery Adult Reconstructive Orthopaedic Surgery
DX: M25.561 Pain in right knee (principal)
CPT/HCPCS: 73721

== ENCOUNTER → 2020-03-07 12:44 | Outpatient (CLI) | payer BC, SELFPAY ==
[2020-03-07 13:10] LABS: Basophils # 0.1 K/mm3 (0-0.2); Basophils % 0.9 % (0.1-2.0); Eosinophils # 0.3 K/mm3 (0.0-0.4); Hematocrit 41.6 % (37.0-47.0); Hemoglobin 13.3 g/dL (12.2-16.2); Lymphocytes # 4.1 K/mm3 (0.7-4.5); Lymphocytes % 38.5 % (10-50); Mean Platelet Volume 8.3 fl (7.4-10.4); Monocytes # 0.5 K/mm3 (0.1-1.0); Monocytes % 4.8 % (1.7-9.3); Neutrophils # 5.6 K/mm3 (1.8-7.8); Neutrophils % 52.8 % (37.0-80.0); Platelet Count 317 K/mm3 (142-424); Red Blood Count 5.33 M/mm3 (4.20-5.40); Red Cell Distribution Width 16.1 % (11.5-17.5); White Blood Count 10.5 K/mm3 (4.8-10.8)
[2020-03-07 13:51] LABS: Alanine Aminotransferase 20 U/L (12-78); Albumin Level 4.7 g/dl (3.5-5.0); Albumin/Globulin Ratio 1.3 (1.1-1.8); Alkaline Phosphatase 98 U/L (38-126); Anion Gap 13.4 mEq/L (5-15); Aspartate Amino Transferase 29 U/L (14-36); Bilirubin,Total 0.4 mg/dl (0.2-1.3); Blood Urea Nitrogen 13 mg/dl (7-17); Calcium 10.1 mg/dl (8.4-10.2); Carbon Dioxide 25 mmol/L (22.0-30.0); Chloride 104 mmol/L (98-107); Chol/HDL Ratio 5.1 (1-3.5); Cholesterol 209 mg/dl (140-200); Estimated Glomerular Filt Rate 61 ml/min (>60); GFR (African American) 74 ML/MIN (>60); Globulin 3.5 g/dL (1.3-3.2); Glucose 92 mg/dl (74-100); HDL Cholesterol 41 mg/dl (40-60); Potassium 4.4 mmoL/L (3.5-5.1); Sodium 138 mmol/L (136-145); Total Protein,Serum 8.2 g/dl (6.3-8.2); Triglycerides 313 mg/dl (30-150); VLDL Cholesterol 63 mg/dL (0-40)
[2020-03-07 14:02] LABS: Direct LDL Cholesterol 115.14 mg/dL (100-129)
[2020-03-07 14:08] LABS: 25-OH Vitamin D, Total 15.6 ng/mL (30-100); Free T4 (Free Thyroxine) 0.95 ng/dl (0.78-2.19)
== END ==
PROVIDERS: Visit Provider Emergency Medicine
DX: R53.83 Other fatigue (principal); E55.9 Vitamin D deficiency, unspecified; I10 Essential (primary) hypertension; Z79.899 Other long term (current) drug therapy
CPT/HCPCS: 36415; 80053; 80061; 82306; 84439; 84443; 85025

== ENCOUNTER 2020-06-10 15:46 | Emergency (ER) | payer BC, SELFPAY ==
[2020-06-10 15:46] VITALS: BP 150/90; PULSE 98; RESP 18; TEMP 36.7; O2SAT 99; BMI 25.2
[2020-06-10 16:05] VITALS: BP 150/90; PULSE 98; RESP 18; TEMP 36.7; O2SAT 99; BMI 25.4
--- NOTE | 2020-06-10 17:16 | HMH.EDUTC ---
[facility] [place] Impression: Otitis media Qualifiers: Otitis media type: unspecified Laterality: right Qualified Code(s): H66.91 - Otitis media, unspecified, right ear Nausea & vomiting Qualifiers: Vomiting type: unspecified Vomiting Intractability: unspecified Qualified Code(s): R11.2 - Nausea with vomiting, unspecified Disposition: Home, Self-Care Condition on Discharge: Good Instructions: Middle Ear Infection, DI for Vomiting -- Adult, Nausea and Vomiting-Adult, Ondansetron, Cefdinir Additional Instructions: *Monitor Temp, Over the counter Motrin or Tylenol as directed/as needed Tylenol every 4 hours and Motrin every 6 hours (as long as your family doctor has told you that you can take it) for fever or pain. and straight to ER if unable to lower temp less than 101.0 after medication given Take medications as prescribed *Sleep elevated *Humidifier/Vaporizer Drink extra fluids with and between meals. If you have difficulty drinking, try very small amounts of water or suck on ice chips. ? Avoid fruit juices, as these do not replace minerals and can actually increase diarrhea. ? Children and adults can use sports drinks to replenish electrolytes. Younger children and infants should use products formulated for children, like oral rehydration solutions. ? Eat food in small amounts and let your stomach recover. ? Get lots of rest. You may feel tired or weak. ? No greasy or fried foods for the next 24-48 hours BRAT diet Bananas Rice Apples and Vermilion ? Make sure to drink plenty of liquids ? Return if needed ? Straight to ER if any life threatening symptoms ? Follow up with family doctor in the next 48-72 hours if no improvement or any worsening of symptoms Follow up IMMEDIATELY for new or worsening symptoms or no Noticeable improvement over the next 48-72 hours. 911 for difficulty breathing or swallowing Prescriptions: Cefdinir [Omnicef 300mg Capsule] 300 mg PO BID #20 cap Transmission Status: Received by [facility] Ondansetron [Zofran 4mg ODT] 4 mg PO TIDP PRN #6 tab PRN Reason: Vomiting Transmission Status: Received by [facility] Referrals: Farrukh Gu MD [Primary Care Provider] - As needed Forms: Work/School Release Time of Disposition: 17:39 Medical Decision Making - Raheem Inquiry Pt receiving controlled substance: No Raheem was queried for this patient: No Vital Signs: 06/10/20 15:46 06/10/20 16:05 Temperature 98.0 F 98.0 F Temperature Source Oral Oral Pulse Rate [Right] 98 H 98 H Respiratory Rate 18 18 Blood Pressure [Right Arm] 150/90 H 150/90 H Blood Pressure Mean [Right Arm] 110 110 Blood Pressure Source [Right Arm] Automatic Cuff Blood Pressure Position [Right Arm] Sitting 02 Sat by Pulse Oximetry 99 99 Oxygen Delivery Method Room Air Orders (Tests/Meds): ED MEDICATIONS Discontinued Medications Generic Name Dose Route Start Last Admin Trade Name Freq PRN Reason Stop Dose Admin Ondansetron HCl 4 mg 06/10/20 17:21 Ondansetron 4mg Odt SL 06/10/20 17:22 ONCE ONE Medical Decision Narrative: Patient states that she has taken zofran before without complications or reactions Discussed with patient and recommended CBC and fluids and patient declined states that she will take the ODT and try to [facility] Patient states that she is allergic to PCN but has taken Cefdinir in the past without reactions or complications Patient able to drink water without vomiting patient no vomiting since arrival [facility] again recommended Iv bolus and patient declined states that she is feeling better since zofran and will go home and drink fluids [facility] [place] - General Stated complaint: vomitting headache Time Seen by Provider: 06/10/20 17:16 Mode of Arrival: Ambulatory Source of Information: Patient Limitations: No Limitations Description of Symptoms (Recalled from Triage Doc. by RN): PATIENT C/O VOMITING, NAUSEA, AND HEADACHE
[2020-06-10 17:59] VITALS: BP 150/90; PULSE 98; RESP 18; TEMP 36.7; O2SAT 99
== END 2020-06-10 18:03 | disposition home or self-care (01) ==
LOC: ER 16:03 → UTC 16:04
PROVIDERS: Emergency Provider Nurse Practitioner; PCP Emergency Medicine
DX: H66.91 Otitis media, unspecified, right ear (principal); F41.8 Other specified anxiety disorders; K21.9 Gastro-esophageal reflux disease without esophagitis; I10 Essential (primary) hypertension
CPT/HCPCS: 99202; G0463

== ENCOUNTER → 2020-08-25 13:29 | Outpatient (CLI) | payer BC, SELFPAY ==
[2020-08-25 14:37] LABS: Opiate Screen,Urine Negative ng/ml (<300)
[2020-08-25 14:38] LABS: Phencyclidine Screen,Urine Negative ng/ml (<25)
[2020-08-25 14:46] LABS: Amphetamine/Metha Screen,Urine Negative ng/ml (<1000)
[2020-08-25 14:47] LABS: Barbiturates Screen,Urine Negative ng/ml (<200); Benzodiazepines Screen,Urine Negative ng/ml (<200)
[2020-08-25 14:48] LABS: Cannabinoid Screen,Urine Negative ng/ml (<50)
[2020-08-25 14:49] LABS: Cocaine Screen,Urine Negative ng/ml (<300); Methadone Screen,Urine Negative ng/ml (<300)
== END ==
PROVIDERS: Visit Provider Emergency Medicine
DX: Z79.899 Other long term (current) drug therapy (principal)
CPT/HCPCS: 80305

== ENCOUNTER 2021-01-12 17:31 | Emergency (ER) | payer SELFPAY ==
[2021-01-12 18:00] VITALS: BP 165/102; PULSE 87; RESP 20; TEMP 36.8; O2SAT 99; BMI 22.4
[2021-01-12 18:10] LABS: UTC Strep Screen (Rapid) Negative (Negative)
--- NOTE | 2021-01-12 19:01 | HMH.EDUTC ---
[facility] [place] Disposition Clinical Impression: Viral syndrome Sinusitis Qualifiers: Sinusitis location: frontal Chronicity: acute Recurrence: non-recurrent Qualified Code(s): J01.10 - Acute frontal sinusitis, unspecified Disposition: Home, Self-Care Condition on Discharge: Good Instructions: DI for Sinusitis, DI for COVID-19 (Suspected or Confirmed ), Preventing the Spread of Coronavirus Discharge Instructions Additional Instructions: Drink plenty of fluids. Take tylenol or ibuprofen for pain or fever. Take the medications as directed. Follow up with your regular doctor. GO TO THE ER FOR ANY WORSENING SYMPTOMS Quarantine until you know the results of your covid-19 test. If it is positive, the health department should call you and give you further instructions about your length of Quarantine and other things. Notify your school or workplace of your results and follow their instructions regarding return to work/school. Prescriptions: Benzonatate [Benzonatate 100mg cap] 100 mg PO TIDP PRN #30 cap PRN Reason: Cough Transmission Status: Received by [facility] predniSONE [Prednisone 20mg Tab] 20 mg PO BID 4 Days #8 tab Transmission Status: Received by [facility] Azithromycin [Z-Jhon 250mg Tab*] 250 mg PO UD DOSE PK #6 tab Transmission Status: Received by [facility] Referrals: Farrukh Gu MD [Primary Care Provider] - Forms: Work/School Release Time of Disposition: 19:27 Medical Decision Making - Medical Records Medical records reviewed: No: I reviewed the patient's medical records. - Raheem Inquiry Pt receiving controlled substance: No Vital Signs: 01/12/21 18:00 01/12/21 19:28 Temperature 98.3 F 98.3 F Temperature Source Oral Pulse Rate 87 Pulse Rate [Left] 87 Respiratory Rate 20 20 Blood Pressure 165/102 H Blood Pressure [Right Arm] 165/102 H Blood Pressure Mean [Right Arm] 123 02 Sat by Pulse Oximetry 99 - Lab Data Lab Results 01/12/21 18:09: Strep Scn [facility] Negative 01/12/21 19:06: Influenza Type A Ag Negative, Influenza Type B Ag Negative Orders (Tests/Meds): ORDERS Category Date Time Status Strep Screen Confirmation Routine Micro 01/12/21 18:09 Received [facility] [place] HPI - General Stated complaint: R earache, cough, chills, fever, aches Time Seen by Provider: 01/12/21 19:01 Mode of Arrival: Ambulatory Source of Information: Patient Limitations: No Limitations Description of Symptoms (Recalled from Triage Doc. by RN): pt c/o chills, cough, body aches and sore throat since this am. HEENT Symptoms (Recalled from RN notes): Yes (sore hroat) Resp Symptoms (Recalled from RN notes): Yes (cough) Skin Symptoms (Recalled from RN notes): No MS Symptoms (Recalled from RN notes): No Functional Status (Recalled from RN notes): wnl - History of Present Illness Provider Complaint: She c/o feeling bad since yesterday. She has had low grade fever, sore throat, a dry cough and body aches. She was at work this morning and her temp was checked and she was sent home and told she needed to get checked for covid-19 before she can return to work. - Related Data Previous Rx's Medication Instructions Recorded Ondansetron [Zofran 4mg ODT] 4 mg PO TIDP PRN #6 tab 06/10/20 omeprazole 20 mg capsule,delayed See Rx Instructions .ROUTE 07/28/20 release .COMPLEX #30 capsule sertraline 50 mg tablet See Rx Instructions .ROUTE 12/07/20 .COMPLEX #30 tab hydrochlorothiazide 12.5 mg tablet 12.5 mg PO DAILY #30 tab 12/27/20 lorazepam 0.5 mg tablet 0.5 mg PO TID #90 tab 12/27/20 trazodone 50 mg tablet See Rx Instructions .ROUTE 12/27/20 .COMPLEX #30 tab Azithromycin [Z-Jhon 250mg Tab*] 250 mg PO UD DOSE PK #6 tab 01/12/21 Benzonatate [Benzonatate 100mg 100 mg PO TIDP PRN #30 cap 01/12/21 cap] predniSONE [Prednisone 20mg 20 mg PO BID 4 Days #8 tab 01/12/21 Tab] Allergies Allergy/AdvReac Type Sev
[2021-01-12 19:16] LABS: UTC Influenza A Antigen Negative (Negative); UTC Influenza B Antigen Negative (Negative)
[2021-01-12 19:28] VITALS: BP 165/102; PULSE 87; RESP 20; TEMP 36.8
== END 2021-01-12 19:35 | disposition home or self-care (01) ==
PROVIDERS: Emergency Provider Nurse Practitioner Family; PCP Emergency Medicine
DX: J01.10 Acute frontal sinusitis, unspecified (principal); B34.9 Viral infection, unspecified; F41.8 Other specified anxiety disorders; K21.9 Gastro-esophageal reflux disease without esophagitis; I10 Essential (primary) hypertension; Z20.822 Contact with and (suspected) exposure to COVID-19
CPT/HCPCS: 87804; 87880; 99203; C9803; G0463; U0003; U0005

== ENCOUNTER 2021-08-27 13:19 | Emergency (ER) | payer SELFPAY ==
[2021-08-27] VITALS (7 sets, daily range): BP systolic 141–174; BP diastolic 86–109; PULSE 70–82; RESP 18–20; TEMP 36.7; O2SAT 94–99; BMI 23.8
--- NOTE | 2021-08-27 13:27 | PC.NURSE ---
ED MD AT BEDSIDE FOR EVALUATION
--- NOTE | 2021-08-27 13:30 | XR_ITS ---
FINAL REPORT CLINICAL HISTORY: PAIN FINDINGS: SINGLE-VIEW CHEST The heart size is normal. The mediastinum is normal. There is mild bronchial wall thickening consistent with bronchitis. There is no pneumothorax. IMPRESSION: Bronchitis. Reviewed, Interpreted and Dictated by Juarez Kay III, MD Transcribed by Yolie Soria Authenticated and [facility]
--- NOTE | 2021-08-27 13:31 | PC.NURSE ---
notified CV lab staff of doppler order, spoke with trevor
[2021-08-27 13:38] LABS: Basophils # 0.1 K/mm3 (0-0.2); Basophils % 1.1 % (0.1-2.0); Eosinophils # 0.3 K/mm3 (0.0-0.4); Eosinophils % 2.4 % (0.1-12.0); Hematocrit 38.8 % (37.0-47.0); Hemoglobin 12.2 g/dL (12.2-16.2); Mean Corpuscular HGB Conc 31.5 g/dL (31.8-35.4); Mean Corpuscular Hemoglobin 23.3 pg (27.0-31.2); Mean Corpuscular Volume 73.9 fl (81-99); Mean Platelet Volume 7.8 fl (7.4-10.4); Monocytes # 0.6 K/mm3 (0.1-1.0); Monocytes % 5.4 % (1.7-9.3); Neutrophils # 6.4 K/mm3 (1.8-7.8); Neutrophils % 56.1 % (37.0-80.0); Platelet Count 343 K/mm3 (142-424); Red Blood Count 5.26 M/mm3 (4.20-5.40); Red Cell Distribution Width 16.9 % (11.5-17.5); White Blood Count 11.5 K/mm3 (4.8-10.8)
--- NOTE | 2021-08-27 13:40 | CA_ITS ---
FINAL REPORT TECHNIQUE: Graded compression, spectral analysis and ultrasound images of the venous system of the upper extremity were obtained. CLINICAL HISTORY: LT ARM PAIN X 1 DAY,NKI FINDINGS: The jugular vein, subclavian vein, axillary vein, brachial vein, cephalic vein and basilic venous system are fully compressible and demonstrate no evidence of thrombosis. IMPRESSION: No evidence of thrombosis of the venous system of the left upper extremity. Reviewed, Interpreted and Dictated by Juarez Kay III, MD Transcribed by Yolie Soria Authenticated and . [facility]
[2021-08-27 13:43] LABS: Alanine Aminotransferase 28 U/L (12-78); Albumin Level 4.5 g/dl (3.5-5.0); Albumin/Globulin Ratio 1.3 (1.1-1.8); Alkaline Phosphatase 97 U/L (38-126); Anion Gap 12.4 mEq/L (5-15); Aspartate Amino Transferase 37 U/L (14-36); Bilirubin,Total < 0.1 mg/dl (0.2-1.3); Blood Urea Nitrogen 9 mg/dl (7-17); Calcium 9.4 mg/dl (8.4-10.2); Carbon Dioxide 28 mmol/L (22.0-30.0); Chloride 101 mmol/L (98-107); Creatinine Clearance Estimated 62 mL/min (50-200); Estimated Glomerular Filt Rate 54 ml/min (>60); GFR (African American) 66 ML/MIN (>60); Globulin 3.6 g/dL (1.3-3.2); Glucose 106 mg/dl (74-100); Potassium 3.4 mmoL/L (3.5-5.1); Sodium 138 mmol/L (136-145); Total Protein,Serum 8.1 g/dl (6.3-8.2)
[2021-08-27 13:45] LABS: INR 0.89 (0.9-1.1); Prothrombin Time 10.1 seconds (10.1-12.5)
[2021-08-27 13:55] LABS: Troponin I < 0.01 ng/ml (0.00-0.034)
--- NOTE | 2021-08-27 14:02 | PC.NURSE ---
CV lab at bedside
--- NOTE | 2021-08-27 14:09 | PC.NURSE ---
ED MD NOTIFIED THAT DOPPLER WAS NEGATIVE, NO NEW ORDERS
--- NOTE | 2021-08-27 14:11 | ECG_ITS ---
APPROVED REPORT Exam: Resting ECG HR:71 bpm ECG Measurements Heart Rate 71 AXES DE 174 P 47 QRSd 85 QRS 60 QT 400 T 64 QTc 423 Conclusion SINUS RHYTHM LEFT VENTRICULAR HYPERTROPHY AND ST-T CHANGE [VOLTAGE CRITERIA PLUS ST/T ABNORMALITY] POSSIBLE SEPTAL MYOCARDIAL INFARCTION , OF INDETERMINATE AGE [30 ms Q WAVE IN V1/V2] ABNORMAL ECG UNCONFIRMED REPORT Electronically signed by : Kwaku Moscoso MD 08/29/2021 21:05:59
[2021-08-27 14:26] LABS: D-Dimer 0.93 ug/mL (0.0-0.5)
--- NOTE | 2021-08-27 15:11 | XR_ITS ---
FINAL REPORT CLINICAL HISTORY: pain FINDINGS: LEFT HUMERUS Two views were obtained. There is no acute fracture or dislocation. The joint spaces appear normal. No soft tissue abnormality is identified. IMPRESSION: No acute process. Reviewed, Interpreted and Dictated by Juarez Kay III, MD Transcribed by Yolie Soria Authenticated and [facility]
--- NOTE | 2021-08-27 16:12 | PC.NURSE ---
ZAIN DRAWN AND SENT TO LAB
[2021-08-27 16:47] LABS: Troponin I < 0.01 ng/ml (0.00-0.034)
--- NOTE | 2021-08-27 16:59 | PC.NURSE ---
rounded on pt at this time, pt updated on POC, notified pt I will send ER MD in room discuss POC and results as soon as he is available. PT sates no needs at this time. will continu Notified ER MD
--- NOTE | 2021-08-27 17:03 | PC.NURSE ---
ED MD AT BEDSIDE, PT REFUSES REPEAT EKG
--- NOTE | 2021-10-02 11:45 | HMH.EDGENADL ---
ED Disposition Clinical Impression: Left arm pain Disposition: Home, Self-Care Condition on Discharge: Good Additional Instructions: Avoid excessive use of the left arm for the next several days. Rest, Ice and elevate the arm as needed for discomfort. Prescriptions: Cyclobenzaprine HCl [Flexeril 10mg tablet] 10 mg PO Q8HP PRN 8 Days #20 tab PRN Reason: Muscle Spasm Transmission Status: Received by [facility] Referrals: Farrukh Gu MD [Primary Care Provider] - - Critical Care Critical Care Time: No Attestation: On 08/27/21, the high probability of a clinically significant, sudden or life threatening deterioration of the following system(s) required my full and direct attention, intervention and personal management. The time I documented below is in addition to time spent performing reported procedures but includes the following listed in this critical care notation. Medical Decision Making - Medical Records Medical records reviewed: Yes: I reviewed the patient's medical records. - Raheem Inquiry Pt receiving controlled substance: No Vital Signs: 08/27/21 13:20 08/27/21 14:15 08/27/21 14:44 Temperature 98.0 F Temperature Source Oral Pulse Rate 82 74 Pulse Rate [Brachial] 81 Respiratory Rate 20 18 18 Blood Pressure 154/89 H 157/88 H Blood Pressure [Right Arm] 174/109 H Blood Pressure Mean Blood Pressure Mean [Right Arm] 130 Blood Pressure Source [Right Arm] Automatic Cuff Blood Pressure Position [Right Arm] Sitting 02 Sat by Pulse Oximetry 99 95 94 L Oxygen Delivery Method Room Air Room Air 08/27/21 14:45 08/27/21 15:15 08/27/21 15:45 Temperature Temperature Source Pulse Rate 72 78 72 Pulse Rate [Brachial] Respiratory Rate 18 Blood Pressure 149/93 H 141/86 H 166/95 H Blood Pressure [Right Arm] Blood Pressure Mean 123 118 128 Blood Pressure Mean [Right Arm] Blood Pressure Source [Right Arm] Blood Pressure Position [Right Arm] 02 Sat by Pulse Oximetry 97 94 L 94 L Oxygen Delivery Method 08/27/21 17:17 Temperature 98.0 F Temperature Source Oral Pulse Rate 70 Pulse Rate [Brachial] Respiratory Rate 20 Blood Pressure 168/93 H Blood Pressure [Right Arm] Blood Pressure Mean Blood Pressure Mean [Right Arm] Blood Pressure Source [Right Arm] Blood Pressure Position [Right Arm] 02 Sat by Pulse Oximetry Oxygen Delivery Method Room Air - Lab Data Lab Results 08/27/21 13:20: WBC 11.5 H, RBC 5.26, Hgb 12.2, Hct 38.8, MCV 73.9 L, MCH 23.3 L, MCHC 31.5 L, RDW 16.9, Plt Count 343, MPV 7.8, Neut % (Auto) 56.1, Lymph % (Auto) 35.0, [place] % (Auto) 5.4, Eos % (Auto) 2.4, Baso % (Auto) 1.1, Neut # (Auto) 6.4, Lymph # (Auto) 4.0, [place] # (Auto) 0.6, Eos # (Auto) 0.3, Baso # (Auto) 0.1 08/27/21 13:20: PT 10.1, INR 0.89 L, APTT 29.0 08/27/21 13:20: Sodium 138, Potassium 3.4 L, Chloride 101, Carbon Dioxide 28, Anion Gap 12.4, BUN 9, Creatinine 1.10 H, Estimated Creat Clear 62, Estimated GFR 54 L, Est GFR ( Amer) 66, Glucose 106 H, Calcium 9.4, Total Bilirubin < 0.1 L, AST 37 H, ALT 28, Alkaline Phosphatase 97, Troponin I < 0.01, Total Protein 8.1, Albumin 4.5, Globulin 3.6 H, Albumin/Globulin Ratio 1.3 08/27/21 13:20: D-Dimer 0.93 H 08/27/21 16:10: Troponin I < 0.01 Result diagrams: 08/27/21 13:20 08/27/21 13:20 Orders (Tests/Meds): ED MEDICATIONS Discontinued Medications Generic Name Dose Route Start Last Admin Trade Name Freq PRN Reason Stop Dose Admin Hydromorphone HCl 1 mg 08/27/21 13:29 08/27/21 13:43 Hydromorphone 2mg/Ml Syringe IV 08/27/21 13:30 1 mg ONCE ONE Administration Ondansetron HCl 4 mg 08/27/21 13:29 08/27/21 13:43 Ondansetron 4mg/2ml Vial IV 08/27/21 13:30 4 mg ONCE ONE Administration Potassium Chloride 20 meq 08/27/21 17:06 Potassium Chloride 20meq Tab PO 08/27/21 17:07 ONCE ONE General Adult HPI - General Time Seen by Provider: 08/27/21 14:50
== END 2021-08-27 17:18 | disposition home or self-care (01) ==
PROVIDERS: Emergency Provider Emergency Medicine; PCP Emergency Medicine
DX: M79.602 Pain in left arm (principal); R20.0 Anesthesia of skin; Z79.899 Other long term (current) drug therapy; Z88.0 Allergy status to penicillin; Z88.6 Allergy status to analgesic agent; Z88.8 Allergy status to other drugs, medicaments and biological substances; I10 Essential (primary) hypertension; K21.9 Gastro-esophageal reflux disease without esophagitis; F32.A Depression, unspecified; F41.9 Anxiety disorder, unspecified; Z72.0 Tobacco use
CPT/HCPCS: 71045; 73060; 80053; 84484; 85025; 85378; 85610; 85730; 93005; 93971; 96374; 96375; 99285; J2405

== ENCOUNTER → 2021-10-05 13:43 | Outpatient (CLI) | payer SELFPAY ==
[2021-10-05 17:21] LABS: Basophils # 0.1 K/mm3 (0-0.2); Basophils % 1.3 % (0.1-2.0); Eosinophils # 0.2 K/mm3 (0.0-0.4); Eosinophils % 2.7 % (0.1-12.0); Hematocrit 36.2 % (37.0-47.0); Hemoglobin 11.1 g/dL (12.2-16.2); Lymphocytes # 3.2 K/mm3 (0.7-4.5); Lymphocytes % 39.6 % (10-50); Mean Corpuscular HGB Conc 30.5 g/dL (31.8-35.4); Mean Corpuscular Hemoglobin 22.4 pg (27.0-31.2); Mean Corpuscular Volume 73.3 fl (81-99); Mean Platelet Volume 8.9 fl (7.4-10.4); Monocytes # 0.5 K/mm3 (0.1-1.0); Monocytes % 5.6 % (1.7-9.3); Neutrophils # 4.1 K/mm3 (1.8-7.8); Neutrophils % 50.8 % (37.0-80.0); Platelet Count 357 K/mm3 (142-424); Red Blood Count 4.94 M/mm3 (4.20-5.40); Red Cell Distribution Width 17.1 % (11.5-17.5); White Blood Count 8.1 K/mm3 (4.8-10.8)
[2021-10-05 17:42] LABS: Alanine Aminotransferase 27 U/L (12-78); Albumin Level 4.4 g/dl (3.5-5.0); Albumin/Globulin Ratio 1.3 (1.1-1.8); Alkaline Phosphatase 120 U/L (38-126); Anion Gap 12.6 mEq/L (5-15); Aspartate Amino Transferase 36 U/L (14-36); Blood Urea Nitrogen 12 mg/dl (7-17); Calcium 9.3 mg/dl (8.4-10.2); Carbon Dioxide 28 mmol/L (22.0-30.0); Chloride 98 mmol/L (98-107); Chol/HDL Ratio 7.9 (1-3.5); Cholesterol 277 mg/dl (140-200); Estimated Glomerular Filt Rate 45 ml/min (>60); GFR (African American) 54 ML/MIN (>60); Globulin 3.4 g/dL (1.3-3.2); Glucose 95 mg/dl (74-100); HDL Cholesterol 35 mg/dl (40-60); Potassium 3.6 mmoL/L (3.5-5.1); Sodium 135 mmol/L (136-145); Total Protein,Serum 7.8 g/dl (6.3-8.2); Triglycerides 305 mg/dl (30-150); VLDL Cholesterol 61 mg/dL (0-40)
[2021-10-05 17:59] LABS: Bilirubin,Total < 0.1 mg/dl (0.2-1.3); Free T4 (Free Thyroxine) 0.94 ng/dl (0.78-2.19)
[2021-10-05 18:12] LABS: Thyroid Stimulating Hormone 1.58 uIU/mL (0.465-4.68)
[2021-10-05 18:43] LABS: 25-OH Vitamin D, Total 30.5 ng/mL (30-100)
[2021-10-11 09:02] LABS: Direct LDL Cholesterol 171 mg/dL (100-129)
== END ==
LOC: LAB 10-26 13:44 → LAB.DROPOF 10-26 13:49
PROVIDERS: PCP Emergency Medicine; Visit Provider Emergency Medicine
DX: I10 Essential (primary) hypertension (principal); R53.83 Other fatigue; E55.9 Vitamin D deficiency, unspecified
CPT/HCPCS: 80053; 80061; 82306; 84439; 84443; 85025

== ENCOUNTER → 2021-10-12 09:58 | Outpatient (CLI) | payer SELFPAY ==
[2021-10-12 11:59] LABS: Iron 29 ug/dL (37-170)
[2021-10-12 12:08] LABS: Total Iron Binding Capacity 386 ug/dL (265-497)
[2021-10-12 12:34] LABS: Ferritin 7.01 ng/ml (6.24-137)
== END ==
PROVIDERS: PCP Emergency Medicine; Visit Provider Emergency Medicine
DX: D64.9 Anemia, unspecified (principal)
CPT/HCPCS: 36415; 82728; 83540; 83550

== ENCOUNTER 2021-10-24 08:34 | Emergency (ER) | payer OTHER, SELFPAY ==
--- NOTE | 2021-10-24 08:41 | XR_ITS ---
FINAL REPORT CLINICAL HISTORY: fall, twisted ankle today, pain FINDINGS: LEFT ANKLE Three views demonstrate no acute fracture or dislocation. The joint spaces appear normal. No acute soft tissue abnormality is seen. IMPRESSION: No acute process. Reviewed, Interpreted and Dictated by Juarez Kay III, MD Transcribed by Kristina Mcdonald Authenticated and [facility]
--- NOTE | 2021-10-24 08:41 | XR_ITS ---
FINAL REPORT CLINICAL HISTORY: fall, twisted ankle today, pain FINDINGS: LEFT FOOT 3 views were obtained. There is no acute fracture or dislocation. The joint spaces are intact. There is no soft tissue abnormality. IMPRESSION: No acute bony abnormality. Reviewed, Interpreted and Dictated by Juarez Kay III, MD Transcribed by Kristina Mcdonald Authenticated and [facility]
[2021-10-24 09:07] VITALS: BP 109/73; PULSE 83; RESP 18; TEMP 36.6; O2SAT 98; BMI 23.8
--- NOTE | 2021-10-24 09:18 | EXP.UTC ---
Discharge Plan Disposition Patient Disposition: Home, Self-Care Condition: Good Prescriptions Prescriptions: New ibuprofen [ibuprofen] 600 mg tablet 600 mg PO Q6HP PRN (Reason: Mild Pain) Qty: 30 0RF No Action lisinopril-hydrochlorothiazide 10-12.5 mg tablet 1 tab PO QAM Qty: 30 2RF lorazepam 0.5 mg tablet 0.5 mg PO TID Qty: 90 0RF omeprazole 20 mg capsule,delayed release(DR/EC) See Rx Instructions .ROUTE .COMPLEX Qty: 30 3RF Dose Instruction: TAKE ONE CAPSULE BY MOUTH ONCE A DAY Rx Instructions: TAKE ONE CAPSULE BY MOUTH ONCE A DAY sertraline 50 mg tablet See Rx Instructions .ROUTE .COMPLEX Qty: 30 3RF Dose Instruction: TAKE 1 TABLET BY MOUTH AT BEDTIME FOR MOOD Rx Instructions: TAKE 1 TABLET BY MOUTH AT BEDTIME FOR MOOD trazodone 50 mg tablet See Rx Instructions .ROUTE .COMPLEX Qty: 30 3RF Dose Instruction: TAKE ONE TABLET BY MOUTH AT BEDTIME Rx Instructions: TAKE ONE TABLET BY MOUTH AT BEDTIME Slow Fe 142 mg (45 mg iron) tablet extended release 142 mg PO DAILY Qty: 90 2RF atorvastatin 20 mg tablet 20 mg PO DAILY Qty: 90 3RF cyclobenzaprine 10 MG tablet 10 mg PO Q8HP PRN (Reason: Muscle Spasm) 8 Days Qty: 20 0RF Referrals Follow up/Referrals: Farrukh Gu MD [Primary Care Provider] - See instructions Elisha Del Rio DPM [Staff Physician] - See instructions Activity Restrictions/Add. Instructions Additional Instructions/Restrictions: Rest the extremity, apply ice for 15 minutes as tolerated three or four times per day, Elevate the extremity as tolerated while you are resting. Take ibuprofen for pain. I sent in a prescription to your pharmacy. Follow up with Dr. Del Rio (podiatry). Sometimes there can be fractures that don't show up well on the first set of x-rays. So, you should follow up. I put in a referral but you need to call her office and schedule an appointment. Follow up with your regular doctor. GO TO THE ER FOR ANY WORSENING SYMPTOMS Clinical Impressions Clinical Impression: Sprain of foot, left, Left ankle sprain Stand Alone Forms Stand Alone Forms: Work/School Release Instructions Patient Instructions: Ankle Sprain, DI for Ankle Sprain, DI for Foot Sprain Discharge ED Provider: Mariusz Saunders [facility] [place] General Stated complaint: fall 10/24/21 lt ankle injury Mode of Arrival: Ambulatory Source of Information: Patient Limitations: No Limitations Time Seen by Provider: 10/24/21 09:17 Description of Symptoms (Recalled from Triage Doc. by RN): pt comes in for workmans comp case. pt missed a step taking out the trash and hurt her left ankle. 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 She states that she twisted her left ankle inward. She is having pain in the mid foot area that radiates up her left when she bears weight or tries to walk on it. She denies other injury. Related Data Previous Rx's Medication Instructions Recorded cyclobenzaprine 10 mg tablet 10 mg PO Q8HP PRN Muscle Spasm 8 08/27/21 days #20 tabs omeprazole 20 mg capsule,delayed See Rx Instructions .Route 09/19/21 release .COMPLEX #30 caps sertraline 50 mg tablet See Rx Instructions .Route 09/19/21 .COMPLEX #30 tabs trazodone 50 mg tablet See Rx Instructions .Route 09/19/21 .COMPLEX #30 tabs lisinopril 10 1 tab PO QAM #30 tabs 10/05/21 mg-hydrochlorothiazide 12.5 mg tablet lorazepam 0.5 mg tablet 0.5 mg PO TID Anxiety #90 tabs 10/05/21 atorvastatin 20 mg tablet 20 mg PO DAILY #90 tabs 10/18/21 ferrous sulfate 142 mg (45 mg 142 mg PO DAILY #90 tabs 10/18/21 iron) tablet,extended release
[2021-10-24 10:25] VITALS: BP 109/73; PULSE 83; RESP 18; TEMP 36.6
== END 2021-10-24 10:26 | disposition home or self-care (01) ==
PROVIDERS: Emergency Provider Nurse Practitioner Family; PCP Emergency Medicine
DX: S93.602A Unspecified sprain of left foot, initial encounter (principal); S93.402A Sprain of unspecified ligament of left ankle, initial encounter; W18.40XA Slipping, tripping and stumbling without falling, unspecified, initial encounter; Y93.E9 Activity, other interior property and clothing maintenance; Y99.0 Civilian activity done for income or pay
CPT/HCPCS: 73610; 73630; 80305; 99213; G0463

== ENCOUNTER → 2021-10-26 15:00 | Outpatient (CLI) | payer SELFPAY ==
[2021-10-26 19:33] LABS: Anion Gap 17.5 mEq/L (5-15); Blood Urea Nitrogen 15 mg/dl (7-17); Carbon Dioxide 23 mmol/L (22.0-30.0); Chloride 98 mmol/L (98-107); Estimated Glomerular Filt Rate 35 ml/min (>60); GFR (African American) 43 ML/MIN (>60); Glucose 85 mg/dl (74-100); Potassium 4.5 mmoL/L (3.5-5.1); Sodium 134 mmol/L (136-145)
== END ==
LOC: LAB.DROPOF 10-27 09:15
PROVIDERS: PCP Emergency Medicine; Visit Provider Emergency Medicine
DX: I10 Essential (primary) hypertension (principal)
CPT/HCPCS: 80048

== ENCOUNTER 2022-05-22 10:52 | Emergency (ER) | payer SELFPAY ==
[2022-05-22 11:05] VITALS: BP 167/107; PULSE 103; RESP 19; TEMP 37.1; O2SAT 99; BMI 25.9
--- NOTE | 2022-05-22 11:32 | EXP.UTC ---
Discharge Plan Disposition Patient Disposition: Home, Self-Care Condition: Good Prescriptions Prescriptions: New sulfamethoxazole-trimethoprim [Bactrim DS] 800-160 mg Tablet 1 tab PO BID Qty: 20 0RF cephalexin 500 mg capsule 500 mg PO QID Qty: 40 0RF mupirocin 2 % ointment 1 applic topical TID 7 Days Qty: 15 0RF No Action lorazepam 0.5 mg tablet 0.5 mg PO TID Qty: 90 1RF atorvastatin 20 mg tablet 20 mg PO DAILY omeprazole 20 mg capsule,delayed release(DR/EC) 20 mg PO DAILY Rx Instructions: TAKE ONE CAPSULE BY MOUTH ONCE A DAY metoprolol succinate 25 mg tablet extended release 24 hr 25 mg PO DAILY Rx Instructions: TAKE ONE TABLET BY MOUTH ONCE A DAY sertraline 50 mg tablet 50 mg PO DAILY Rx Instructions: TAKE 1 TABLET BY MOUTH AT BEDTIME FOR MOOD Referrals Follow up/Referrals: Farrukh Gu MD [Primary Care Provider] - See instructions Activity Restrictions/Add. Instructions Additional Instructions/Restrictions: Rest the extremity, Elevate the extremity as tolerated while you are resting. Keep the wound clean and dry. Keep a dressing on it if you are going to be getting it dirty. Watch the wound for signs of infection, such as redness, swelling, drainage, fever. etc. Take tylenol or ibuprofen for pain. Follow up with your regular doctor. GO TO THE ER FOR ANY WORSENING SYMPTOMS OR CONCERNS. Clinical Impressions Clinical Impression: Cellulitis of left middle finger Stand Alone Forms Stand Alone Forms: Work/School Release Instructions Patient Instructions: DI for Cellulitis -- Adult, Cellulitis Discharge ED Provider: Mariusz Saunders [facility] General Stated complaint: LT Middle finger pain poss infection Mode of Arrival: Ambulatory Source of Information: Patient Limitations: No Limitations Time Seen by Provider: 05/22/22 11:32 Description of Symptoms (Recalled from Triage Doc. by RN): PATIENT C/O SWELLING AND PAIN TO LEFT MIDDLE FINGER. SHE STATES APPROX 2 WEEKS AGO SHE HIT THE TIP OF HER FINGER ON A DOOR AND CAUSED A SORE. SCABBED AREA AND SWELLING NOTED TO FINGER HEENT Symptoms (Recalled from RN notes): No Resp Symptoms (Recalled from RN notes): No Skin Symptoms (Recalled from RN notes): Yes MS Symptoms (Recalled from RN notes): Yes Functional Status (Recalled from RN notes): WNL History of Present Illness Provider Complaint: She has redness and swelling of the tip of her left middle finger. She denies any recent injury, but she did burn this finger about 1 year ago. Since that healed her skin has been fragile in that area. She has had trouble with it cracking open and getting infected, like she thinks is happening right now. Related Data Home Medications Medication Instructions Recorded Confirmed atorvastatin 20 mg tablet 20 mg PO DAILY Cholesterol 05/22/22 05/22/22 metoprolol succinate 25 mg 25 mg PO DAILY Hypertension 05/22/22 05/22/22 tablet,extended release 24 hr omeprazole 20 mg capsule,delayed 20 mg PO DAILY Acid reflux 05/22/22 05/22/22 release sertraline 50 mg tablet 50 mg PO DAILY MOOD 05/22/22 05/22/22 Previous Rx's Medication Instructions Recorded lorazepam 0.5 mg tablet 0.5 mg PO TID Anxiety #90 tabs 12/31/21 cephalexin 500 mg capsule 500 mg PO QID #40 caps 05/22/22 mupirocin 2 % topical ointment 1 applic topical TID 7 days #15 05/22/22 grams sulfamethoxazole 800 1 tab PO BID #20 tabs 05/22/22 mg-trimethoprim 160 mg tablet (Bactrim DS) Allergies Allergy/AdvReac Type Severity Reaction Status Date / Time aspirin [ASPIRIN] Allergy Mild Verified 12/31/21 08:54 Penicillins Allergy Verified 12/31/21 08:54 zonisamide [From Zonegran] Allergy Hives Verified 12/31/21 08:54 Worker's Comp Is this a Worker's Comp case?: No [facility] Disclaimer: The information contained in this section may have been updated after the patient was seen, as this information can be updated by o
[2022-05-22 11:56] VITALS: BP 167/107; PULSE 103; RESP 19; TEMP 37.1; O2SAT 99
== END 2022-05-22 11:59 | disposition home or self-care (01) ==
PROVIDERS: Emergency Provider Nurse Practitioner Family; PCP Emergency Medicine
DX: L03.012 Cellulitis of left finger (principal); I10 Essential (primary) hypertension; F17.210 Nicotine dependence, cigarettes, uncomplicated
CPT/HCPCS: 99212; 99214; G0463

== ENCOUNTER → 2022-07-09 13:10 | Outpatient (CLI) | payer SELFPAY ==
[2022-07-09 18:25] LABS: Basophils # 0.1 K/mm3 (0-0.2); Basophils % 0.7 % (0.1-2.0); Eosinophils # 0.2 K/mm3 (0.0-0.4); Eosinophils % 2.5 % (0.1-12.0); Hematocrit 38.1 % (37.0-47.0); Hemoglobin 11.8 g/dL (12.2-16.2); Lymphocytes # 3.4 K/mm3 (0.7-4.5); Lymphocytes % 44.7 % (10-50); Mean Corpuscular HGB Conc 31.1 g/dL (31.8-35.4); Mean Corpuscular Hemoglobin 23.3 pg (27.0-31.2); Mean Corpuscular Volume 74.8 fl (81-99); Mean Platelet Volume 9.8 fl (7.4-10.4); Monocytes # 0.4 K/mm3 (0.1-1.0); Monocytes % 5.8 % (1.7-9.3); Neutrophils # 3.6 K/mm3 (1.8-7.8); Neutrophils % 46.3 % (37.0-80.0); Platelet Count 290 K/mm3 (142-424); Red Blood Count 5.08 M/mm3 (4.20-5.40); Red Cell Distribution Width 16.6 % (11.5-17.5); White Blood Count 7.7 K/mm3 (4.8-10.8)
[2022-07-09 18:35] LABS: Alanine Aminotransferase 29 U/L (12-78); Albumin Level 4.3 g/dl (3.5-5.0); Albumin/Globulin Ratio 1.4 (1.1-1.8); Alkaline Phosphatase 108 U/L (38-126); Anion Gap 14.3 mEq/L (5-15); Aspartate Amino Transferase 37 U/L (14-36); Bilirubin,Total 0.3 mg/dl (0.2-1.3); Blood Urea Nitrogen 10 mg/dl (7-17); Calcium 9.2 mg/dl (8.4-10.2); Carbon Dioxide 27 mmol/L (22.0-30.0); Chloride 100 mmol/L (98-107); Cholesterol 229 mg/dl (140-200); Estimated Glomerular Filt Rate 49 ml/min (>60); GFR (African American) 59 ML/MIN (>60); Globulin 3.1 g/dL (1.3-3.2); Glucose 91 mg/dl (74-100); HDL Cholesterol 38 mg/dl (40-60); Potassium 4.3 mmoL/L (3.5-5.1); Sodium 137 mmol/L (136-145); Total Protein,Serum 7.4 g/dl (6.3-8.2); Triglycerides 260 mg/dl (30-150); VLDL Cholesterol 52 mg/dL (0-40)
[2022-07-09 18:46] LABS: Direct LDL Cholesterol 131.64 mg/dL (100-129)
[2022-07-09 18:49] LABS: Amphetamine/Metha Screen,Urine Negative ng/ml (<1000); Barbiturates Screen,Urine Negative ng/ml (<200)
[2022-07-09 18:50] LABS: Benzodiazepines Screen,Urine Negative ng/ml (<200)
[2022-07-09 18:51] LABS: Cannabinoid Screen,Urine Negative ng/ml (<50); Cocaine Screen,Urine Negative ng/ml (<300)
[2022-07-09 18:52] LABS: Methadone Screen,Urine Negative ng/ml (<300)
[2022-07-09 18:53] LABS: Phencyclidine Screen,Urine Negative ng/ml (<25)
[2022-07-09 18:54] LABS: 25-OH Vitamin D, Total < 12.8 ng/mL (30-100); Opiate Screen,Urine Negative ng/ml (<300)
[2022-07-09 19:05] LABS: Thyroid Stimulating Hormone 1.22 uIU/mL (0.465-4.68)
== END ==
LOC: LAB.DROPOF 07-10 06:28
PROVIDERS: PCP Emergency Medicine; Visit Provider Emergency Medicine
DX: I10 Essential (primary) hypertension (principal); M54.16 Radiculopathy, lumbar region; R53.83 Other fatigue; F41.9 Anxiety disorder, unspecified; E55.9 Vitamin D deficiency, unspecified; Z79.899 Other long term (current) drug therapy
CPT/HCPCS: 80053; 80061; 80305; 82306; 84443; 85025

== ENCOUNTER → 2022-08-31 21:23 | Outpatient (CLI) | payer SELFPAY ==
[2022-08-31 22:43] LABS: Coronavirus 19, PCR Not Detected (NotDetected); Influenza A, PCR Not Detected (NotDetected); Influenza B, PCR Not Detected (NotDetected)
== END ==
PROVIDERS: PCP Emergency Medicine; Visit Provider Emergency Medicine
DX: Z20.822 Contact with and (suspected) exposure to COVID-19 (principal)
CPT/HCPCS: 87636

== ENCOUNTER 2022-11-11 06:44 | Emergency (ER) | payer SELFPAY ==
[2022-11-11] VITALS (9 sets, daily range): BP systolic 143–191; BP diastolic 73–102; PULSE 79–96; RESP 12–22; TEMP 36.7–36.8; O2SAT 96–100; BMI 25.6
--- NOTE | 2022-11-11 06:50 | PC.NURSE ---
DR MCINTOSH AT BEDSIDE
--- NOTE | 2022-11-11 06:53 | XR_ITS ---
FINAL REPORT TECHNIQUE: Single view chest CLINICAL HISTORY: chest pain, 2 weeks cough, soa COMPARISON: 08/27/2021 FINDINGS: A single view of the chest was obtained. The heart and mediastinum are within normal limits. The lungs are clear. There is no pneumothorax. Osseous structures are unremarkable. IMPRESSION: No acute cardiopulmonary process. Reviewed, Interpreted and Dictated by Juarez Kay III, MD Transcribed by Angella Leal Authenticated and [facility]
--- NOTE | 2022-11-11 06:53 | HMH.EDGENADL ---
Discharge Plan Disposition Patient Disposition: Home, Self-Care Prescriptions Prescriptions: New prednisone 20 mg tablet 40 mg PO BID 5 Days Qty: 20 0RF No Action atorvastatin 20 mg tablet 20 mg PO DAILY Qty: 90 3RF losartan-hydrochlorothiazide 50-12.5 mg tablet 1 tab PO DAILY Qty: 90 3RF sertraline 50 mg tablet 50 mg PO DAILY Qty: 90 3RF Rx Instructions: TAKE 1 TABLET BY MOUTH AT BEDTIME FOR MOOD trazodone 50 mg tablet 50 mg PO HS Qty: 90 3RF cholecalciferol (vitamin D3) 1,250 mcg (50,000 unit) capsule 1,250 mcg PO WEEKLY Qty: 5 0RF ergocalciferol (vitamin D2) 1,250 mcg (50,000 unit) capsule See Rx Instructions .ROUTE .COMPLEX Qty: 5 0RF Dose Instruction: TAKE ONE CAPSULE BY MOUTH EVERY WEEK Rx Instructions: TAKE ONE CAPSULE BY MOUTH EVERY WEEK omeprazole 20 mg capsule,delayed release(DR/EC) See Rx Instructions .ROUTE .COMPLEX Qty: 30 0RF Dose Instruction: TAKE ONE CAPSULE BY MOUTH ONCE A DAY Rx Instructions: TAKE ONE CAPSULE BY MOUTH ONCE A DAY amlodipine 5 mg tablet See Rx Instructions .ROUTE .COMPLEX Qty: 90 0RF Dose Instruction: TAKE ONE TABLET BY MOUTH ONCE A DAY Rx Instructions: TAKE ONE TABLET BY MOUTH ONCE A DAY lorazepam 0.5 mg tablet 0.5 mg PO TID Qty: 90 0RF gabapentin [Neurontin] 100 mg capsule 100 mg PO BID Qty: 60 0RF mupirocin 2 % ointment 1 applic topical TID 7 Days Qty: 15 0RF Referrals Follow up/Referrals: Farrukh Gu MD [Primary Care Provider] - See instructions Activity Restrictions/Add. Instructions Additional Instructions/Restrictions: Call your family doctor to establish care for this visit to the emergency department and schedule follow-up within 48 hours to ensure improvement. If you have any worsening of your condition or any other concerning signs or symptoms, return to the emergency department or your primary care doctor for further evaluation. Clinical Impressions Clinical Impression: Bronchitis Discharge ED Provider: Abel Candelario General Adult HPI <Abel Candelario MD - Last Filed: 11/12/22 01:46> General Chief complaint: Shortness of Breath/Dyspnea Stated complaint: Cough,SOA Time Seen by Provider: 11/11/22 06:53 History of Present Illness HPI narrative: 42-year-old female, history of smoking, hypertension presents with 2 weeks of worsening shortness of breath and productive cough. She reports that it started as a cold and has now settled into my chest . She reports productive cough. She reports chest pain when coughing, does not have chest pain at baseline. She reports that she feels short of breath with activity. She smokes, does not use any inhalers at home. Related Data Previous Rx's Medication Instructions Recorded mupirocin 2 % topical ointment 1 applic topical TID 7 days #15 05/22/22 grams atorvastatin 20 mg tablet 20 mg PO DAILY Cholesterol #90 tabs 06/25/22 losartan 50 mg-hydrochlorothiazide 1 tab PO DAILY #90 tabs 06/25/22 12.5 mg tablet sertraline 50 mg tablet 50 mg PO DAILY MOOD #90 tabs 06/25/22 trazodone 50 mg tablet 50 mg PO HS #90 tabs 06/25/22 cholecalciferol (vitamin D3) 1,250 1,250 mcg PO WEEKLY vitamin d 07/15/22 mcg (50,000 unit) capsule deficiency #5 caps ergocalciferol (vitamin D2) 1,250 See Rx Instructions .Route 08/26/22 mcg (50,000 unit) capsule .COMPLEX #5 caps omeprazole 20 mg capsule,delayed See Rx Instructions .Route 10/23/22 release .COMPLEX #30 caps amlodipine 5 mg tablet See Rx Instructions .Route 10/29/22 .COMPLEX #90 tabs gabapentin 100 mg capsule 100 mg PO BID #60 caps 10/31/22 (Neurontin) lorazepam 0.5 mg tablet 0.5 mg PO TID Anxiety #90 tabs 10/31/22 prednisone 20 mg tablet 40 mg PO BID 5 days #20 tabs 11/11/22 Allergies Allergy/AdvReac Type Severity Reaction Status Date / Time aspirin [ASPIRIN] Allergy Mild Verified 08/16/22 09:27 Penicillins Allergy Verified 08/16/22 09:27 zonisamide [From
--- NOTE | 2022-11-11 06:54 | ECG_ITS ---
APPROVED REPORT Exam: Resting ECG HR:87 bpm ECG Measurements Heart Rate 87 AXES AK 157 P 57 QRSd 82 QRS 60 QT 371 T 15 QTc 415 Conclusion SINUS RHYTHM LEFT VENTRICULAR HYPERTROPHY AND ST-T CHANGE [VOLTAGE CRITERIA PLUS ST/T ABNORMALITY] ABNORMAL ECG UNCONFIRMED REPORT Electronically signed by : Kwaku Moscoso MD 11/11/2022 17:07:26
--- NOTE | 2022-11-11 07:03 | PC.NURSE ---
respiratory at bedside
--- NOTE | 2022-11-11 07:28 | PC.NURSE ---
XR AT BEDSIDE
--- NOTE | 2022-11-11 08:10 | PC.NURSE ---
ROUNDED ON PT. PT C/O PAIN AT IV SITE. IV SITE UNREMARKABLE, FLUSHED WITHOUT DIFFICULTY. PT CONTINUES TO C/O IV SITE PAIN. OFFERED TO REMOVE IV AND START AT A NEW SITE. PT DECLINES, WILL KEEP CURRENT IV SITE
== END 2022-11-11 09:08 | disposition home or self-care (01) ==
PROVIDERS: Emergency Provider Emergency Medicine; PCP Emergency Medicine
DX: J40 Bronchitis, not specified as acute or chronic (principal); I10 Essential (primary) hypertension; F17.210 Nicotine dependence, cigarettes, uncomplicated; R06.02 Shortness of breath; R05.9 Cough, unspecified
CPT/HCPCS: 71045; 93005; 99284

== ENCOUNTER 2022-11-19 12:21 | Emergency (ER) | payer SELFPAY ==
[2022-11-19 13:07] VITALS: BP 155/96; PULSE 101; RESP 18; TEMP 36.9; O2SAT 99; BMI 25.3
[2022-11-19 13:20] VITALS: BP 155/96; PULSE 101; RESP 18; TEMP 36.9; O2SAT 99
--- NOTE | 2022-11-19 13:22 | EXP.UTC ---
Discharge Plan Disposition Patient Disposition: Home, Self-Care Condition: Good Prescriptions Prescriptions: New fluticasone propionate [Flonase Allergy Relief] 50 mcg/actuation spray,suspension 1 - 2 spray intranasal DAILY Qty: 16 0RF Rx Instructions: administer into each nostril daily azithromycin [Zithromax Z-Jhon] 250 mg tablet See Rx Instructions .ROUTE .COMPLEX 5 Days Qty: 6 0RF Rx Instructions: For 250 mg dose pack: take 500 mg today (day 1), then 250 mg for 4 days (days 2-5) benzonatate 100 mg capsule 100 mg PO TID PRN (Reason: cough) Qty: 30 0RF No Action atorvastatin 20 mg tablet 20 mg PO DAILY Qty: 90 3RF losartan-hydrochlorothiazide 50-12.5 mg tablet 1 tab PO DAILY Qty: 90 3RF sertraline 50 mg tablet 50 mg PO DAILY Qty: 90 3RF Rx Instructions: TAKE 1 TABLET BY MOUTH AT BEDTIME FOR MOOD trazodone 50 mg tablet 50 mg PO HS Qty: 90 3RF cholecalciferol (vitamin D3) 1,250 mcg (50,000 unit) capsule 1,250 mcg PO WEEKLY Qty: 5 0RF ergocalciferol (vitamin D2) 1,250 mcg (50,000 unit) capsule See Rx Instructions .ROUTE .COMPLEX Qty: 5 0RF Dose Instruction: TAKE ONE CAPSULE BY MOUTH EVERY WEEK Rx Instructions: TAKE ONE CAPSULE BY MOUTH EVERY WEEK omeprazole 20 mg capsule,delayed release(DR/EC) See Rx Instructions .ROUTE .COMPLEX Qty: 30 0RF Dose Instruction: TAKE ONE CAPSULE BY MOUTH ONCE A DAY Rx Instructions: TAKE ONE CAPSULE BY MOUTH ONCE A DAY amlodipine 5 mg tablet See Rx Instructions .ROUTE .COMPLEX Qty: 90 0RF Dose Instruction: TAKE ONE TABLET BY MOUTH ONCE A DAY Rx Instructions: TAKE ONE TABLET BY MOUTH ONCE A DAY lorazepam 0.5 mg tablet 0.5 mg PO TID Qty: 90 0RF gabapentin [Neurontin] 100 mg capsule 100 mg PO BID Qty: 60 0RF mupirocin 2 % ointment 1 applic topical TID 7 Days Qty: 15 0RF prednisone 20 mg tablet 40 mg PO BID 5 Days Qty: 20 0RF Referrals Follow up/Referrals: Farrukh Gu MD [Primary Care Provider] - See instructions Activity Restrictions/Add. Instructions Additional Instructions/Restrictions: *Monitor Temp, Over the counter Motrin or Tylenol as directed/as needed Tylenol every 4 hours and Motrin every 6 hours (as long as your family doctor has told you that you can take it) for fever or pain. and straight to ER if unable to lower temp less than 101.0 after medication given *Warm salt water gargles may help to soothe the throat *Throat Lozenges? *Warm fluids like tea with honey may help to soothe the throat? *Sleep elevated *Humidifier/Vaporizer *Flonase 2 sprays in each nostril daily but be aware that it may take 2-3 days before you notice improvement Follow up IMMEDIATELY for new or worsening symptoms or no Noticeable improvement over the next 48-72 hours. 911 for difficulty breathing or swallowing Clinical Impressions Clinical Impression: Otitis media Qualifiers: Otitis media type: unspecified Laterality: left Qualified Code(s): H66.92 - Otitis media, unspecified, left ear Instructions Patient Instructions: Middle Ear Infection, Ear Infections (Alternative Therapy) Discharge ED Provider: Shell Hernandez [facility] [place] General Stated complaint: Potts, congestion, sore throat, ear ache Mode of Arrival: Ambulatory Source of Information: Patient Limitations: No Limitations Time Seen by Provider: 11/19/22 13:22 Description of Symptoms (Recalled from Triage Doc. by RN): PATIENT C/O RIGHT EAR PAIN, COUGH AND CONGESTION X 2 DAYS HEENT Symptoms (Recalled from RN notes): Yes Resp Symptoms (Recalled from RN notes): No Skin Symptoms (Recalled from RN notes): No MS Symptoms (Recalled from RN notes): No Functional Status (Recalled from RN notes): WNL History of Present Illness Provider Complaint: Patient states that she has been having pain in her ears, sore throat, sinus pain and pressure and cough States that to
== END 2022-11-19 13:49 | disposition home or self-care (01) ==
PROVIDERS: Emergency Provider Nurse Practitioner; PCP Emergency Medicine
DX: H66.92 Otitis media, unspecified, left ear (principal); R05.9 Cough, unspecified; R09.81 Nasal congestion; R51.9 Headache, unspecified; F17.210 Nicotine dependence, cigarettes, uncomplicated
CPT/HCPCS: 99212; 99214; G0463

== ENCOUNTER 2023-03-17 11:37 | Outpatient (CLI) | payer OTHER, SELFPAY ==
[2023-03-17 11:52] LABS: Basophils # 0.1 K/mm3 (0-0.2); Basophils % 0.8 % (0.1-2.0); Eosinophils # 0.2 K/mm3 (0.0-0.4); Eosinophils % 3.5 % (0.1-12.0); Hematocrit 41.6 % (37.0-47.0); Hemoglobin 13.4 g/dL (12.2-16.2); Lymphocytes # 3.1 K/mm3 (0.7-4.5); Lymphocytes % 45.2 % (10-50); Mean Corpuscular HGB Conc 32.3 g/dL (31.8-35.4); Mean Corpuscular Hemoglobin 25.3 pg (27.0-31.2); Mean Corpuscular Volume 78.4 fl (81-99); Mean Platelet Volume 8.4 fl (7.4-10.4); Monocytes # 0.4 K/mm3 (0.1-1.0); Monocytes % 6.1 % (1.7-9.3); Neutrophils # 3.1 K/mm3 (1.8-7.8); Neutrophils % 44.4 % (37.0-80.0); Platelet Count 371 K/mm3 (142-424); Red Blood Count 5.31 M/mm3 (4.20-5.40); Red Cell Distribution Width 17.2 % (11.5-17.5); White Blood Count 6.9 K/mm3 (4.8-10.8)
[2023-03-17 12:41] LABS: Alanine Aminotransferase 30 U/L (12-78); Albumin Level 4.3 g/dl (3.5-5.0); Albumin/Globulin Ratio 1.3 (1.1-1.8); Alkaline Phosphatase 86 U/L (38-126); Anion Gap 13.7 mEq/L (5-15); Aspartate Amino Transferase 37 U/L (14-36); Bilirubin,Total 0.3 mg/dl (0.2-1.3); Blood Urea Nitrogen 13 mg/dl (7-17); Calcium 9.7 mg/dl (8.4-10.2); Carbon Dioxide 30 mmol/L (22.0-30.0); Chloride 100 mmol/L (98-107); Chol/HDL Ratio 8.9 (1-3.5); Cholesterol 259 mg/dl (140-200); Estimated Glomerular Filt Rate 41 ml/min (>60); GFR (African American) 50 ML/MIN (>60); Globulin 3.2 g/dL (1.3-3.2); Glucose 87 mg/dl (74-100); HDL Cholesterol 29 mg/dl (40-60); Potassium 4.7 mmoL/L (3.5-5.1); Sodium 139 mmol/L (136-145); Total Protein,Serum 7.5 g/dl (6.3-8.2)
[2023-03-17 12:42] LABS: Triglycerides 413 mg/dl (30-150)
[2023-03-17 12:58] LABS: 25-OH Vitamin D, Total < 12.8 ng/mL (30-100)
== END 2023-03-17 23:59 ==
LOC: LAB.DROPOF 11:38
PROVIDERS: PCP Physician Assistant; Visit Provider Physician Assistant
DX: I10 Essential (primary) hypertension (principal); K21.9 Gastro-esophageal reflux disease without esophagitis; E55.9 Vitamin D deficiency, unspecified; Z79.899 Other long term (current) drug therapy
CPT/HCPCS: 80053; 80061; 82306; 84443; 85025

== ENCOUNTER 2023-03-24 20:00 | Outpatient (CLI) | payer OTHER, SELFPAY ==
[2023-03-28 18:32] LABS: Alanine Aminotransferase 31 U/L (12-78); Albumin Level 4.3 g/dl (3.5-5.0); Albumin/Globulin Ratio 1.5 (1.1-1.8); Alkaline Phosphatase 90 U/L (38-126); Anion Gap 10.7 mEq/L (5-15); Aspartate Amino Transferase 31 U/L (14-36); Bilirubin,Total 0.3 mg/dl (0.2-1.3); Blood Urea Nitrogen 14 mg/dl (7-17); Calcium 9.2 mg/dl (8.4-10.2); Carbon Dioxide 27 mmol/L (22.0-30.0); Chloride 106 mmol/L (98-107); Estimated Glomerular Filt Rate 45 ml/min (>60); GFR (African American) 54 ML/MIN (>60); Globulin 2.8 g/dL (1.3-3.2); Glucose 100 mg/dl (74-100); Potassium 3.7 mmoL/L (3.5-5.1); Sodium 140 mmol/L (136-145); Total Protein,Serum 7.1 g/dl (6.3-8.2)
== END 2023-03-24 23:59 ==
LOC: LAB.DROPOF 03-28 20:01
PROVIDERS: PCP Physician Assistant; Visit Provider Physician Assistant
DX: R89.9 Unspecified abnormal finding in specimens from other organs, systems and tissues (principal); I10 Essential (primary) hypertension
CPT/HCPCS: 80053

== ENCOUNTER 2023-04-03 12:44 | Outpatient (CLI) | payer OTHER, SELFPAY ==
--- NOTE | 2023-04-03 12:46 | CA_ITS ---
APPROVED REPORT EXAM: Comprehensive 2D, Doppler, and color-flow Echocardiogram Lugger: Domi Howard RVT Ht: 5 ft 3 in Wt: 144lbs BSA: 1.68 BP: 110/80 mmHg Indications: MURMUR,HTN,HLD,SMOKER 2D Dimensions LA Volume 44.40 mL LA Volume Index 26.43 mL/m2 (M/F) 16-34 M-Mode Dimensions RVDd 1.64 cm (0.9-2.6) LA Diam 3.61 cm (1.9-4.0) LVDd 4.02 cm (3.5-5.7) LVDs 2.35 cm (3.5-5.7) IVSd 0.96 cm (0.6-1.1) PWd 0.85 cm (0.6-1.1) EF (Teich) 73.00% FS 41.50% EDV (Teich) 70.80 mL TAPSE 1.95 (<1.7) ESV (Teich) 19.10 mL LV Diastology E Decel Time 247 (160-240 msec) E/A Ratio 1.0 Aortic Valve AGNES Index 1.05 cm2/m2 AoV Peak Monico. 228.0 (50-130 cm/s) AI PHT 656.00 ms AO Peak GR. 20.80 mmHg AO Mean GR. 12.30 (<5 mmHg) AO VTI 44.4 (18-25 cm) AGNES (VTI) 1.80 (2.5-4.5 cm2) Mitral Valve MV E Max Monico. 101.0 (40-130 cm/s) MV A Velocity 97.0 (40-130 cm/s) E/A Ratio 1.04 MV PHT 72.0 ms Pulmonary Valve PV Peak Velocity 95.0 (50-150 cm/s) Left Ventricle The left ventricle is normal size. The left ventricular systolic function is normal. The left ventricular ejection fraction is within the normal range. There is increased LV wall thickness. There is normal LV segmental wall motion. The left ventricular diastolic function is normal. LVEF is 60%. Right Ventricle The right ventricle is mildly dilated. Right ventricle is mildly hypokinetic. Atria The left atrium size is normal. The right atrium size is normal. There is no Doppler evidence of interatrial shunt. Aortic Valve The aortic valve opens well. There is no aortic valvular stenosis. Moderate aortic regurgitation. Mitral Valve The mitral valve is normal in structure. No evidence of mitral valve stenosis. There is no mitral valve regurgitation noted. Tricuspid Valve The tricuspid valve leaflets are thin and pliable. Trace tricuspid regurgitation. There is insufficient TR jet to estimate RVSP. Pulmonic Valve The pulmonary valve is normal in structure. Trace pulmonic regurgitation. Great Vessels The aortic root is normal in size. The ascending aorta is normal in size. IVC is normal in size and collapses >50% with inspiration. Pericardium There is no pericardial effusion. Other Information Study Quality: Fair Conclusion Normal LV systolic size and function. Mild RV dilation with mild reduction in RV function. Moderate AI. Electronically signed by : Kaitlin Almaguer MD 04/06/2023 01:31:57
--- NOTE | 2023-04-03 12:46 | CA_ITS ---
FINAL REPORT TECHNIQUE: Color Doppler, duplex Doppler and león scale sonography of the bilateral neck vasculature was performed. Velocities were measured in the carotid arteries. Stenosis evaluation based on velocity criteria. CLINICAL HISTORY: BRUIT,HTN,HLD,SMOKER COMPARISON: None FINDINGS: The peak systolic velocity of the right common carotid artery is 83 cm/sec and internal carotid artery 109 cm/sec. The diastolic velocity in the internal carotid artery is 41 cm/sec. The ICA/CCA ratio is 1.4. Visually, a small amount of plaque is seen. These findings are consistent with less than 50% stenosis. The external carotid artery is patent. The right vertebral artery is patent with antegrade flow. The peak systolic velocity of the left common carotid artery is 88 cm/sec and internal carotid artery 79 cm/sec. The diastolic velocity in the internal carotid artery is 34 cm/sec. The ICA/CCA ratio is 1. Visually, a small amount of plaque is seen. These findings are consistent with less than 50% stenosis. The external carotid artery is patent. The left vertebral artery is patent with antegrade flow. IMPRESSION: No evidence of significant carotid stenosis. Bilateral patent vertebral arteries. If indicated, CTA or MRA could further evaluate. Reviewed, Interpreted and Dictated by Milton Orozco MD Transcribed by Tram Salazar Authenticated and [facility]
== END 2023-04-03 23:59 ==
LOC: RT 12:45
PROVIDERS: PCP Physician Assistant; Visit Provider Physician Assistant
DX: R01.1 Cardiac murmur, unspecified (principal); R09.89 Other specified symptoms and signs involving the circulatory and respiratory systems; Z90.710 Acquired absence of both cervix and uterus
CPT/HCPCS: 93306; 93880

== ENCOUNTER 2023-04-12 10:43 | Emergency (ER) | payer OTHER, SELFPAY ==
[2023-04-12 10:55] VITALS: BP 147/82; PULSE 119; RESP 18; TEMP 38.1; O2SAT 97; BMI 26.3
[2023-04-12 11:12] LABS: UTC Influenza A Antigen Negative (Negative); UTC Influenza B Antigen Positive (Negative)
--- NOTE | 2023-04-12 11:27 | EXP.UTC ---
Discharge Plan Disposition Patient Disposition: Home, Self-Care Condition: Good Prescriptions Prescriptions: No Action atorvastatin 20 mg tablet 20 mg PO DAILY trazodone 50 mg tablet 50 mg PO DAILY amlodipine 5 mg tablet 5 mg PO DAILY omeprazole 40 mg capsule,delayed release(DR/EC) 40 mg PO DAILY lorazepam 0.5 mg tablet 0.5 mg PO DAILY gabapentin 300 mg capsule 300 mg PO DAILY ergocalciferol (vitamin D2) 1,250 mcg (50,000 unit) capsule 1,250 mcg PO WEEKLY sertraline 50 mg tablet 50 mg PO DAILY cholecalciferol (vitamin D3) [Vitamin D3] 50 mcg (2,000 unit) capsule 50 mcg PO DAILY dapagliflozin propanediol [Farxiga] 10 mg tablet 10 mg PO DAILY Referrals Follow up/Referrals: Sharon Rain PA [Primary Care Provider] - See instructions Activity Restrictions/Add. Instructions Additional Instructions/Restrictions: No sign of a bacterial infection. Likely viral. Viruses can take 7-14 days to run their course. Nasal saline and bulb syringe or nose Elyse to remove nasal drainage to help with nasal congestion. Hard to eat, drink, sleep with nasal congestion so important to keep this cleaned out. Monitor temp. Tylenol or Motrin as needed for pain or fever Encourage fluids, water, Gatorade, Powerade, Pedialyte if /toddler/child Warm salt water gargles Warm fluids Sore throat lozenges Sleep elevated Humidifier/vaporizer Follow-up immediately for new or worsening symptoms or no noticeable improvement over the next 48-72 hours. Clinical Impressions Clinical Impression: Influenza B Instructions Patient Instructions: DI for Influenza -- Adult Discharge ED Provider: Nell ([facility]en [facility] HPI General Stated complaint: vomiting, weakness Mode of Arrival: Ambulatory Source of Information: Patient Limitations: No Limitations Time Seen by Provider: 04/12/23 11:27 Description of Symptoms (Recalled from Triage Doc. by RN): PATIENT C/O BODY ACHES AND VOMITING X 3 DAYS HEENT Symptoms (Recalled from RN notes): No Resp Symptoms (Recalled from RN notes): No Skin Symptoms (Recalled from RN notes): No MS Symptoms (Recalled from RN notes): No Functional Status (Recalled from RN notes): WNL History of Present Illness Provider Complaint: 42 YR OLD FEMALE PRESENTS FOR BODY ACHES AND VOMITING SINCE LAST , PT STATES SHE HAS NOT BEEN ABLE TO KEEP ANYTHING DOWN SINCE Related Data Home Medications Medication Instructions Recorded Confirmed amlodipine 5 mg tablet 5 mg PO DAILY 04/12/23 04/12/23 atorvastatin 20 mg tablet 20 mg PO DAILY 04/12/23 04/12/23 cholecalciferol (vitamin D3) 50 50 mcg PO DAILY 04/12/23 04/12/23 mcg (2,000 unit) capsule (Vitamin D3) dapagliflozin propanediol 10 mg 10 mg PO DAILY 04/12/23 04/12/23 tablet (Farxiga) ergocalciferol (vitamin D2) 1,250 1,250 mcg PO WEEKLY 04/12/23 04/12/23 mcg (50,000 unit) capsule gabapentin 300 mg capsule 300 mg PO DAILY 04/12/23 04/12/23 lorazepam 0.5 mg tablet 0.5 mg PO DAILY 04/12/23 04/12/23 omeprazole 40 mg capsule,delayed 40 mg PO DAILY 04/12/23 04/12/23 release sertraline 50 mg tablet 50 mg PO DAILY 04/12/23 04/12/23 trazodone 50 mg tablet 50 mg PO DAILY 04/12/23 04/12/23 Allergies Allergy/AdvReac Type Severity Reaction Status Date / Time aspirin [ASPIRIN] Allergy Mild Verified 03/17/23 08:38 Penicillins Allergy Verified 03/17/23 08:38 zonisamide [From Zonegran] Allergy Hives Verified 03/17/23 08:38 metoprolol [From Toprol XL] AdvReac Intermediate Other Verified 03/17/23 08:38 lisinopril AdvReac Intermediate creatinine Uncoded 03/17/23 08:38 elevation Worker's Comp Is this a Worker's Comp case?: No [facility] Disclaimer: The information contained in this section may have been updated after the patient was seen, as this information can be updated by other users. Medical History (Reviewed 04/12/23 @ 11:30 by Ayleen Camejo ([facility]), LOG GRADER) Severe dysplasia of cervix Surgical History (Reviewed 04/12/23 @ 11:31 by Ayleen Camejo ([facility]), LOG GRADER) History of bilateral salpingectomy Social History (Reviewed 04/12/23 @ 11:31 by Ayleen Camejo (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 [employer] current occupational exposures/hazards: No caffeine: Yes ROS Obtained: Yes All systems reviewed & no additional complaints except as documented Constitutional Constitutional: Reports system reviewed and no additional complaints, except as documented, Reports as per HPI and Reports body ache Eyes Eyes: Reports system reviewed and no additional complaints, except as documented ENT Ears, Nose, Mouth, and Throat: Reports system reviewed and no additional complaints, except as documented and Reports as per HPI Cardiovascular Cardiovascular: Reports system reviewed and no additional complaints, except as documented Respiratory Respiratory: Reports system reviewed and no additional complaints, except as documented Gastrointestinal Gastrointestingal: Reports system reviewed and no additional complaints, except as documented, as per HPI, nausea and vomiting Integumentary/Breasts Skin/Breast: Reports system reviewed and no additional complaints, except as documented Neurologic Neurologic: Reports system reviewed and no additional complaints, except as documented Endocrine Endocrine: Reports system reviewed and no additional complaints, except as documented Hematologic/Lymphatic Henatologic/Lymphatic: Reports system reviewed and no additional complaints, except as documented Allergic/Immunologic Allergic/Immunologic: Reports system reviewed and no additional complaints, except as documented Physical Exam General General appearance: alert and in no apparent distress Head Head exam: atraumatic Eye Eye exam: Present normal appearance and PERRL ENT ENT exam: Present normal exam, normal oropharynx, mucous membranes moist and TM's normal bilaterally Respiratory Respiratory exam: Present normal lung sounds bilaterally Cardiovascular Cardiovascular exam: Present regular rate and normal rhythm Neurological Exam Neurological exam: Present alert Skin Skin exam: Present warm and intact Medical Decision Making Medical Records Medical records reviewed: Yes I reviewed the patient's medical records. Raheem Inquiry Pt receiving controlled substance: No Raheem was queried for this patient: No Vital Signs: 04/12/23 10:55 Temperature 100.6 F H Temperature Source Oral Pulse Rate [Left Brachial] 119 H Respiratory Rate 18 Blood Pressure [Left Arm] 147/82 H Blood Pressure Mean [Left Arm] 103 Blood Pressure Source [Left Arm] Automatic Cuff Blood Pressure Position [Left Arm] Sitting 02 Sat by Pulse Oximetry 97 Oxygen Delivery Method Room Air Lab Data Lab results reviewed: Yes I reviewed the patient's lab results. Lab Results 04/12/23 10:59: Influenza Type A Ag Negative, Influenza Type B Ag Positive A Medical Decision Narrative: WAS GOING TO DO LABS,ZOFRAN AND FLUIDS BUT PT CAME OUT AND STATES SHE HAS TO LEAVE DUE TO HER DAD NOT DOING WELL AND SHE LEFT BEFORE ANYTHING WAS DONE
[2023-04-12 11:28] VITALS: BP 147/82; PULSE 119; RESP 18; TEMP 38.1; O2SAT 97
== END 2023-04-12 11:33 | disposition home or self-care (01) ==
PROVIDERS: Emergency Provider Nurse Practitioner Family; PCP Physician Assistant
DX: J10.2 Influenza due to other identified influenza virus with gastrointestinal manifestations (principal); R11.2 Nausea with vomiting, unspecified; M79.18 Myalgia, other site; F17.210 Nicotine dependence, cigarettes, uncomplicated
CPT/HCPCS: 87804; 99212; 99214; G0463

== ENCOUNTER 2023-04-28 14:25 | Outpatient (CLI) | payer OTHER, SELFPAY ==
[2023-04-28 14:36] LABS: Microscopic, Urine URINE MICROSCOPIC (MICROSCOPIC)
[2023-04-28 15:06] LABS: Basophils # 0.1 K/mm3 (0-0.2); Basophils % 1.4 % (0.1-2.0); Eosinophils # 0.1 K/mm3 (0.0-0.4); Eosinophils % 0.9 % (0.1-12.0); Hematocrit 39.6 % (37.0-47.0); Hemoglobin 12.5 g/dL (12.2-16.2); Lymphocytes # 3.6 K/mm3 (0.7-4.5); Lymphocytes % 37.1 % (10-50); Mean Corpuscular HGB Conc 31.5 g/dL (31.8-35.4); Mean Corpuscular Hemoglobin 25.7 pg (27.0-31.2); Mean Corpuscular Volume 81.8 fl (81-99); Mean Platelet Volume 8.7 fl (7.4-10.4); Monocytes # 0.6 K/mm3 (0.1-1.0); Monocytes % 6.2 % (1.7-9.3); Neutrophils # 5.3 K/mm3 (1.8-7.8); Neutrophils % 54.3 % (37.0-80.0); Platelet Count 322 K/mm3 (142-424); Red Blood Count 4.85 M/mm3 (4.20-5.40); Red Cell Distribution Width 16.8 % (11.5-17.5); White Blood Count 9.8 K/mm3 (4.8-10.8)
[2023-04-28 15:51] LABS: Albumin Level 4.2 g/dl (3.5-5.0); Anion Gap 12.1 mEq/L (5-15); Blood Urea Nitrogen 11 mg/dl (7-17); Calcium 9.4 mg/dl (8.4-10.2); Carbon Dioxide 26 mmol/L (22.0-30.0); Chloride 105 mmol/L (98-107); Estimated Glomerular Filt Rate 49 ml/min (>60); GFR (African American) 59 ML/MIN (>60); Glucose 87 mg/dl (74-100); Phosphorous 3.6 mg/dl (2.5-4.5); Potassium 4.1 mmoL/L (3.5-5.1); Sodium 139 mmol/L (136-145)
[2023-04-28 19:36] LABS: Appearance,Urine CLEAR (Clear); Bilirubin,Urine Negative (Negative); Blood, Urine Negative (Negative); Color,Urine YELLOW (Yellow); Glucose,Urine (UA) 3+ (Negative); Ketones,Urine Negative (Negative); Leukocyte Esterase,Urine Negative (Negative); Nitrate,Urine Negative (Negative); Protein,Urine Negative (Negative); Urobilinogen,Urine 0.2 EU/dl (0.2)
[2023-04-28 19:53] LABS: RBC,Urine Occasional #/hpf (0-3)
[2023-04-28 19:55] LABS: Creatinine,Urine Random 44 mg/dL (Not Estab.)
== END 2023-04-28 23:59 ==
LOC: LAB 14:26
PROVIDERS: PCP Physician Assistant; Visit Provider Hospitalist
DX: N28.9 Disorder of kidney and ureter, unspecified (principal)
CPT/HCPCS: 36415; 80069; 81001; 82570; 84156; 85025

== ENCOUNTER 2023-05-22 08:49 | Outpatient (CLI) | payer OTHER, SELFPAY ==
[2023-05-22] VITALS (8 sets, daily range): BP systolic 117–137; BP diastolic 73–97; PULSE 71–88; RESP 18; TEMP 36.7–36.9; O2SAT 95–100; BMI 25.6
--- NOTE | 2023-05-22 08:49 | CT_ITS ---
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 A noncontrast coronary calcium scan was performed. A CT attenuation threshold of 130 Hounsfield units (HU) was used for the detection of calcium in contiguous voxels of 1 sq mm in area to be counted as individual lesions. Bolus tracking in the ascending aorta with a threshold of 180 HU was performed. Immediately afterwards, ECG synchronized cardiac CT was then performed from the cardiac base to apex using retrospective gating with ECG tube current modulation. A total of 85 mL of Isovue 370 mg/mL contrast medium was administered at 5 mL/sec followed by a saline flush using a biphasic injection protocol. A tube voltage of 120 KVp was used. The patient received the following medications prior to the cardiac CT. 15 mg of oral ivabradine 0.8 mg of sublingual nitroglycerin The average heart rate at the time of acquisition was 71 bpm and regular. Image Reconstruction Transaxial images were reconstructed at 0.67 mm slide thickness. Data was reviewed interactively on an advanced workstation capable of 2 and 3-dimensional displays in all conventional reconstruction formats, including multiplanar reformations, maximum intensity projections, curved multiplanar reformations, and volume rendered reconstructions. When applicable, selected routine images describing the relevant coronary anatomy and pathology were saved and sent to PACS. Complications None Technical Quality Overall image quality was suboptimal due to elevated HR and significant motion. Coronary artery opacification was fair. Total DLP (Dose-Length Product) is 1079.9 mGy-cm. The reported value represents the total of one or more individual components during the CT acquisition of this date and at this time, and as such, the same value may appear in more than one CT report depending on the interpreting/reporting physicians. COMPARISON None FINDINGS CT Coronary Calcium Scoring LMA (Left Main Artery) = 0 LAD (Left Anterior Descending) = 28 LCX (Left Coronary Circumflex) = 0 RCA (Right Coronary Artery) = 0 Total Calcium Score = 28 using the AJ-130 method. The observed calcium score of 28 is at 98th percentile for subjects of the same age, sex, and race/ethnicity. The interpretation of the calcium heart score is based on the following continuum*: 0 = no calcified plaque detected (risk of coronary artery disease is very low ??? less than 5%) 1-10 = calcium detected in extremely minimal levels (risk of coronary diseases is still low ??? less than 10%) 11-100 = mild levels of plaque detected with certainty (mild or minimal narrowing of heart arteries is likely) 101-400 = definite,at least moderate levels of plaque detected (relatively high risk of a heart attack within 3-5 years) >401-999 = extensive levels of plaque detected (high risk of heart attack, high levels of vascular disease are present, high likelihood of at least one significant coronary narrowing) *The calcium heart score quantifies the burden of coronary calcification/plaque in the coronary arteries. The calcium heart score is not able to evaluate the presence or burden of non-calcified (i.e. soft) plaque. There is no identifiable calcification in the aortic valve, mitral annulus or mitral valve, pericardium, or myocardium. Coronary CT Angiography The coronary arterial system is right dominant. Quantitative Stenosis Grading: Left Main (LM): The left main originates normally from the left sinus of Valsalva. The LM trifurcates into the left anterior descending artery, ramus intermedius, and left circumflex artery. The LM is patent with no evidence of atherosclerosis. Left Anterior Descending (LAD) and Diagonal Branches: The LAD gives off 2 diagonal branch(es). There is calcified plaque in the proximal LAD, but with no evidence of luminal stenosis. There is no evidence of LAD-myocardial bridge. Ramus-intermedius (RI): The RI is patent. Left Circumflex (LCX) and Obtuse Marginals (OM): The LCX gives off 1 Obtuse Marginal (OM) branch(es). The LCX and its branches are patent with no evidence of atherosclerosis. Right Coronary Artery (RCA): The RCA originates normally from the right sinus of Valsalva. The RCA gives off a posterior descending artery (PDA) and posterolateral (PL) branches. The RCA and its branches are patent with no evidence of atherosclerosis. Non-Coronary Cardiac Findings: Analysis of the left ventricular (LV) structure and function was performed after 3-D reconstruction of the LV from axial images, with user-corrected automatic contouring for assessment of LV volumes and user-defined reconstruction from oblique planes for measurement of 3-D cardiac structure and function. -The left ventricle systolic function is normal. -There is no left atrial appendage filling defect. Two right pulmonary veins and two left pulmonary veins drain normally into the left atrium. -No pericardial thickening or calcification. -Central and branch pulmonary arteries in the [id number] are unremarkable. -Thoracic aorta within the visualized thoracic aortic-branches in the [id number] is unremarkable. Extracardiac Structures No significant extra-cardiac findings. Note, however, that this study is focused on the cardiac findings. IMPRESSION -Technically difficult study due to elevated HR and significant motion. -Presence of coronary calcification with an Agatston score = 28 using the AJ-130 method. -The observed calcium score of 28 is at 98th percentile for subjects of the same age, sex, and race/ethnicity. -No evidence of significant flow-limiting atherosclerosis of the coronary arteries. -CAD-RADS 1. Management recommendations per ACC/AHA guidelines*, as clinically appropriate. *Recommendations: CAD RADS 0: Reassurance. Consider non-atherosclerotic causes of chest pain. CAD RADS 1: Consider non-atherosclerotic causes of chest pain. Consider preventive therapy and risk factor modification. CAD RADS 2: Consider non-atherosclerotic causes of chest pain. Consider preventive therapy and risk factor modification, particularly for patients with nonobstructive plaque in multiple segments. CAD RADS 3: Consider further functional testing. Consider symptom-guided anti-ischemic and preventive pharmacotherapy as well as risk factor modification per published guideline statements. CAD RADS 4A: Consider further functional testing or invasive coronary angiography with revascularization per published guideline statements. Consider symptom-guided anti-ischemic and preventive pharmacotherapy as well as risk factor modification per published guideline statements. CAD RADS 4B: Invasive coronary angiography recommended with revascularization per published guideline statements. Consider symptom-guided anti-ischemic and preventive pharmacotherapy as well as risk factor modification per published guideline statements. CAD RADS 5: Consider invasive angiography and/or viability assessment with revascularization per published guideline statements. Consider symptom-guided anti-ischemic and preventive pharmacotherapy as well as risk factor modification per published guideline statements. CRITICAL RESULT None COMMUNICATION Per this written report The coronary and cardiac findings of this CCTA were reviewed, reported, and signed by Kimo Almaguer MD (Information Technology Assistant) Conclusion Electronically signed by : Kaitlin Almaguer MD 05/27/2023 16:20:34
[2023-05-22] MEDS: IVABRADINE HCL 7.5MG TABLET *IVABRADINE+METOPROLOL REGIMINE 15 MG PO (10:01)
[2023-05-22 10:15] LABS: Blood Urea Nitrogen 12 mg/dl (7-17); Calcium 9.8 mg/dl (8.4-10.2); Carbon Dioxide 24 mmol/L (22.0-30.0); Chloride 108 mmol/L (98-107); Creatinine Clearance Estimated 61 mL/min (50-200); Estimated Glomerular Filt Rate 49 ml/min (>60); GFR (African American) 59 ML/MIN (>60); Glucose 97 mg/dl (74-100); Sodium 139 mmol/L (136-145)
[2023-05-22] MEDS: NITROGLYCERIN 0.4MG SL TABLET 0.800000000000000044 MG SL (11:14)
[2023-05-22] MEDS: 0.9 % SODIUM CHLORIDE 50 ML VIAL IV (11:31)
[2023-05-22] MEDS: IOPAMIDOL-370 (76%);100ML BOTTLE 85 ML IV (11:32)
[2023-05-22] MEDS: SODIUM CHLORIDE 0.9% 10ML SYR (RAD ONLY) 10 ML IV (11:32)
== END 2023-05-22 12:03 | disposition home or self-care (01) ==
PROVIDERS: PCP Physician Assistant; Visit Provider Nurse Practitioner Family
DX: R01.1 Cardiac murmur, unspecified (principal); R06.00 Dyspnea, unspecified; E78.5 Hyperlipidemia, unspecified; I10 Essential (primary) hypertension; N18.9 Chronic kidney disease, unspecified; Z82.49 Family history of ischemic heart disease and other diseases of the circulatory system; Z72.0 Tobacco use; R94.31 Abnormal electrocardiogram [ECG] [EKG]
CPT/HCPCS: 75571; 75574; 80048; Q9967

== ENCOUNTER 2023-10-03 09:15 | Outpatient (CLI) | payer OTHER, SELFPAY ==
[2023-10-03 18:31] LABS: Albumin Level 4.4 g/dl (3.5-5.0); Chloride 108 mmol/L (98-107); Sodium 140 mmol/L (136-145)
[2023-10-03 18:32] LABS: Potassium 4.4 mmoL/L (3.5-5.1)
[2023-10-03 18:34] LABS: Alanine Aminotransferase 29 U/L (12-78); Albumin/Globulin Ratio 1.4 (1.1-1.8); Alkaline Phosphatase 85 U/L (38-126); Anion Gap 10.4 mEq/L (5-15); Aspartate Amino Transferase 34 U/L (14-36); Bilirubin,Total 0.5 mg/dl (0.2-1.3); Blood Urea Nitrogen 9 mg/dl (7-17); Carbon Dioxide 26 mmol/L (22.0-30.0); Estimated Glomerular Filt Rate 44 ml/min (>60); GFR (African American) 54 ML/MIN (>60); Globulin 3.1 g/dL (1.3-3.2); Total Protein,Serum 7.5 g/dl (6.3-8.2)
[2023-10-03 18:35] LABS: Calcium 9.2 mg/dl (8.4-10.2); Chol/HDL Ratio 4.9 (1-3.5); Cholesterol 187 mg/dl (140-200); Glucose 81 mg/dl (74-100); HDL Cholesterol 38 mg/dl (40-60); Triglycerides 303 mg/dl (30-150); VLDL Cholesterol 61 mg/dL (0-40)
[2023-10-03 18:46] LABS: Direct LDL Cholesterol 98.25 mg/dL (100-129)
[2023-10-03 19:06] LABS: Thyroid Stimulating Hormone 1.27 uIU/mL (0.465-4.68)
[2023-10-03 19:10] LABS: 25-OH Vitamin D, Total 33.6 ng/mL (30-100)
== END 2023-10-03 23:59 | disposition home or self-care (01) ==
LOC: LAB.DROPOF 10-06 09:15
PROVIDERS: PCP Family Medicine; Visit Provider Family Medicine
DX: E78.2 Mixed hyperlipidemia (principal); I10 Essential (primary) hypertension; R53.83 Other fatigue; E55.9 Vitamin D deficiency, unspecified; Z79.899 Other long term (current) drug therapy
CPT/HCPCS: 80053; 80061; 82306; 84443

== ENCOUNTER 2023-10-10 15:51 | Outpatient (CLI) | payer OTHER, SELFPAY ==
--- NOTE | 2023-10-10 15:52 | MM_ITS ---
PROCEDURE INFORMATION: Exam: MG Bilateral Screening 3D Mammography Exam date and time: 10/10/2023 3:35 PM Age: 43 years old Clinical indication: Screening mammogram TECHNIQUE: Imaging protocol: Bilateral Screening tomosynthesis and 2D mammography including computer-aided detection (CAD) when performed. COMPARISON: MG MM DIG SCREENING MAMM BI W/CAD 10/12/2019 10:32 AM FINDINGS: MAMMOGRAPHY: Breast composition: The breast is heterogeneously dense, which may obscure small masses. Mass: None. Architectural distortion: No new or suspicious architectural distortion. Calcifications: No new or suspicious calcifications are present Asymmetric density: No new or suspicious asymmetric density is present Skin thickening: None. Axillary adenopathy: None. IMPRESSION: No mammographic evidence of malignancy. Recommend annual screening mammography unless otherwise clinically indicated. ASSESSMENT: BI-RADS category 1: Negative.
== END 2023-10-10 23:59 | disposition home or self-care (01) ==
LOC: RAD 15:52
PROVIDERS: PCP Family Medicine; Visit Provider Family Medicine
DX: Z12.39 Encounter for other screening for malignant neoplasm of breast (principal)
CPT/HCPCS: 77063; 77067

== ENCOUNTER 2024-02-06 09:20 | Outpatient (CLI) | payer OTHER, SELFPAY ==
[2024-02-06 09:38] LABS: Basophils # 0.1 K/mm3 (0-0.2); Basophils % 0.9 % (0.1-2.0); Eosinophils # 0.3 K/mm3 (0.0-0.4); Eosinophils % 2.5 % (0.1-12.0); Hematocrit 39.9 % (37.0-47.0); Hemoglobin 12.4 g/dL (12.2-16.2); Lymphocytes # 4.3 K/mm3 (0.7-4.5); Lymphocytes % 41.3 % (10-50); Mean Corpuscular HGB Conc 31.1 g/dL (31.8-35.4); Mean Corpuscular Hemoglobin 24.4 pg (27.0-31.2); Mean Corpuscular Volume 78.5 fl (81-99); Mean Platelet Volume 9.7 fl (7.4-10.4); Monocytes # 0.7 K/mm3 (0.1-1.0); Monocytes % 6.4 % (1.7-9.3); Neutrophils # 5.1 K/mm3 (1.8-7.8); Neutrophils % 48.6 % (37.0-80.0); Platelet Count 312 K/mm3 (142-424); Red Blood Count 5.08 M/mm3 (4.20-5.40); Red Cell Distribution Width 17.9 % (11.5-17.5); White Blood Count 10.4 K/mm3 (4.8-10.8)
[2024-02-06 10:55] LABS: 25-OH Vitamin D, Total 31.7 ng/mL (30-100); Free Thyroxine Index 2.2 ug/dL (5.93-13.13); T4 (Thyroxine) 7.3 ug/dl (5.53-11.0); Triiodothryronine (T3) Uptake 30 % (23.5-40.5)
[2024-02-06 11:09] LABS: Thyroid Stimulating Hormone 3.23 uIU/mL (0.465-4.68); Thyroid Stimulating Hormone 3.25 uIU/mL (0.465-4.68)
== END 2024-02-06 23:59 | disposition home or self-care (01) ==
LOC: LAB 09:21
PROVIDERS: PCP Family Medicine; Visit Provider Obstetrics & Gynecology
DX: N93.9 Abnormal uterine and vaginal bleeding, unspecified (principal); Z68.27 Body mass index [BMI] 27.0-27.9, adult; E66.3 Overweight
CPT/HCPCS: 36415; 82306; 84436; 84443; 84479; 85025

== ENCOUNTER 2024-02-09 09:29 | Outpatient (CLI) | payer OTHER, SELFPAY ==
--- NOTE | 2024-02-09 09:29 | US_ITS ---
PROCEDURE: US TRANSVAGINAL CLINICAL INDICATION: abnormal uterine bleeding COMPARISON: CT [id number] CT abdomen pelvis wo con from 01/26/2018 FINDINGS: Transvaginal sonographic images of the pelvis were obtained. UTERUS: 7.7 cm x 4.6cmx 5.8 cm anteverted with a combined endometrial thickness of 3.0 mm. There is a 1.2 cm nabothian cyst in the cervix. The myometrium is heterogenous. There is a small amount of fluid within the endometrium near the fundus. There is a 4 mm hyperechoic area superior to the endometrium in the fundus. LEFT OVARY: 2.4cmx1.3cmx2.0cm with a volume of 3.3ml. There is a 1.1 cm follicle in the left ovary. RIGHT OVARY: 1.9 cmx 1.4cmx1.2cm with a volume of 1.7ml. Both ovaries are seen and appear normal. Doppler flow to both ovaries are seen. There is a small amount of fluid in the cul-de-sac. IMPRESSION: 1. Anteverted uterus normal in shape and size. The endometrium is thin and there is a small amount of fluid within the endometrium. She is currently on her period. There is a 4 mm hyperechoic area within the myometrium just superior to the endometrium at the left fundus of the uterus. 2. Both ovaries are seen and appear normal. There is a 1.1 cm follicle in the left ovary. 3. There is a small amount of fluid in the cul-de-sac. Dictated by: Haim Mcadams MD 02/09/2024 13:53 Haim Mcadams MD in OV 02/09/2024 13:53
== END 2024-02-09 23:59 | disposition home or self-care (01) ==
LOC: RAD 09:29
PROVIDERS: PCP Family Medicine; Visit Provider Obstetrics & Gynecology
DX: N93.9 Abnormal uterine and vaginal bleeding, unspecified (principal)
CPT/HCPCS: 76830

== ENCOUNTER 2024-03-05 15:56 | Emergency (ER) | payer OTHER, SELFPAY ==
[2024-03-05 16:00] VITALS: BP 167/107; PULSE 96; RESP 19; TEMP 36.8; O2SAT 98; BMI 26.3
--- NOTE | 2024-03-05 16:21 | ED_ITS ---
Discharge Plan Disposition Patient Disposition: Home, Self-Care Condition: Good Prescriptions Prescriptions: New amoxicillin 875 mg tablet 875 mg PO Q12H Qty: 20 0RF benzonatate 100 mg capsule 100 mg PO TIDP PRN (Reason: Cough) Qty: 30 0RF methylprednisolone 4 mg Tablets,Dose Pack 4 mg PO DIRECTED 6 Days Qty: 21 0RF Rx Instructions: Take 1 pack as directed for 6 days No Action doxazosin 1 mg tablet 1 mg PO HS Qty: 30 2RF gabapentin 400 mg capsule 400 mg PO TID Qty: 90 1RF ergocalciferol (vitamin D2) 1,250 mcg (50,000 unit) capsule See Rx Instructions .ROUTE .COMPLEX Qty: 14 3RF Dose Instruction: TAKE ONE CAPSULE BY MOUTH EVERY WEEK Rx Instructions: TAKE ONE CAPSULE BY MOUTH EVERY WEEK trazodone 50 mg tablet See Rx Instructions .ROUTE .COMPLEX Qty: 90 3RF Dose Instruction: TAKE ONE TABLET BY MOUTH AT BEDTIME Rx Instructions: TAKE ONE TABLET BY MOUTH AT BEDTIME atorvastatin 40 mg tablet 40 mg PO DAILY Qty: 30 2RF sertraline 50 mg tablet See Rx Instructions .ROUTE .COMPLEX Qty: 90 0RF Dose Instruction: TAKE 1 TABLET BY MOUTH AT BEDTIME FOR MOOD Rx Instructions: TAKE 1 TABLET BY MOUTH AT BEDTIME FOR MOOD lorazepam 0.5 mg tablet 0.5 mg PO TID 30 Days Qty: 90 0RF amlodipine 5 mg tablet 5 mg PO DAILY omeprazole 40 mg capsule,delayed release(DR/EC) 40 mg PO DAILY cholecalciferol (vitamin D3) [Vitamin D3] 50 mcg (2,000 unit) capsule 50 mcg PO DAILY Referrals Follow up/Referrals: Kwaku Elaine MD [Primary Care Provider] - See instructions Clinical Impressions Clinical Impression: Otitis media, Sinusitis Stand Alone Forms Stand Alone Forms: Work/School Release Instructions Patient Instructions: Middle Ear Infection, Methylprednisolone, Amoxicillin Print Language Print Language: Mongolian Discharge ED Provider: Mariusz Saunders [facility] General Stated complaint: ear ache Mode of Arrival: Ambulatory Source of Information: Patient Limitations: No Limitations Time Seen by Provider: 03/05/24 16:06 Description of Symptoms (Recalled from Triage Doc. by RN): PATIENT C/O RIGHT EAR PAIN X 2 DAYS HEENT Symptoms (Recalled from RN notes): Yes Resp Symptoms (Recalled from RN notes): No Skin Symptoms (Recalled from RN notes): No MS Symptoms (Recalled from RN notes): No Functional Status (Recalled from RN notes): WNL History of Present Illness Provider Complaint: she states that for the past 3 days she has had sore throat and ear pain. She states that she gets ear infections and has to be treated with antibiotics at times. Related Data Home Medications ?Medication ?Instructions ?Recorded ?Confirmed amlodipine 5 mg tablet 5 mg PO DAILY 04/12/23 02/06/24 cholecalciferol (vitamin D3) 50 50 mcg PO DAILY 04/12/23 02/06/24 mcg (2,000 unit) capsule (Vitamin D3) omeprazole 40 mg capsule,delayed 40 mg PO DAILY 04/12/23 02/06/24 release Previous Rx's ?Medication ?Instructions ?Recorded ergocalciferol (vitamin D2) 1,250 See Rx Instructions .Route 06/30/23 mcg (50,000 unit) capsule .COMPLEX #14 caps trazodone 50 mg tablet See Rx Instructions .Route 06/30/23 .COMPLEX #90 tabs doxazosin 1 mg tablet 1 mg PO HS #30 tabs 10/03/23 atorvastatin 40 mg tablet 40 mg PO DAILY #30 tabs 10/08/23 gabapentin 400 mg capsule 400 mg PO TID #90 caps 12/02/23 sertraline 50 mg tablet See Rx Instructions .Route 12/04/23 .COMPLEX #90 tabs lorazepam 0.5 mg tablet 0.5 mg PO TID 30 days #90 tabs 01/16/24 amoxicillin 875 mg tablet 875 mg PO Q12H #20 tabs 03/05/24 benzonatate 100 mg capsule 100 mg PO TIDP PRN Cough #30 caps 03/05/24 methylprednisolone 4 mg tablets in 4 mg PO DIRECTED 6 days #21 tabs 03/05/24 a dose pack Allergies Allergy/AdvReac Type Severity Reaction Status Date / Time lisinopril Allergy Other Verified 03/05/24 16:09 zonisamide (From Zonegran) Allergy Hives Verified 02/06/24 08:29 metoprolol (From Toprol XL) AdvReac Intermediate Other Verified 02/06/24 08:29 Worker's Comp Is this a Worker's Comp case?: No [facility] PFS Disclaimer: The information contained in this section may have been updated after the patient was seen, as this information can be updated by other users. Medical History (Updated 03/05/24 @ 16:39 by Mariusz Saunders APRN) Abnormal uterine bleeding Severe dysplasia of cervix Screening for breast cancer Coronary artery disease Agatston coronary artery calcium score less than 100 Seizure disorder Anxiety and depression History of gastroesophageal reflux (GERD) Hypertension History of anemia Abnormal electrocardiogram [ECG] [EKG] Moderate aortic insufficiency Family history of early CAD Chronic kidney disease Hyperlipidemia Dyspnea Surgical History History of cholecystectomy History of bilateral salpingectomy Family History Other COPD (chronic obstructive pulmonary disease) Social History Smoking Status: Current every day smoker tobacco type: cigarettes packs per day: 1 second hand exposure: Yes alcohol intake: never substance use type: denies use current occupational status: employed Travel in the last 8 weeks: None household members: spouse housing: apartment marital status: 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 [employer] current occupational exposures/hazards: No caffeine: Yes Have you lived/traveled outside US in past 30 days?: No Contact w/someone who lives/traveled outside US past 30 days?: No Exposure to someone with infectious disease in past 14 days?: No Do you have a fever (greater than 100.4 F or 38 C)?: No Have you tested positive for COVID-19: No Exposed to someone with COVID-19 in past 14 days?: No Do you have a sore throat?: No Do you have a cough?: No Do you have any weakness?: No Do you have any diarrhea?: No Are you experiencing any unusual bleeding?: No Do you have any muscle aches/pain?: No Do you have any abdominal pain?: No Are you experiencing loss of taste or smell?: No ROS Obtained: Yes All systems reviewed & no additional complaints except as documented Constitutional Constitutional: Denies chills, Reports fever(s) and Reports poor appetite Eyes Eyes: Denies eye discharge ENT Ears, Nose, Mouth, and Throat: Denies ear discharge, Reports otalgia, Denies hearing loss, Denies sinus pain and Reports sore throat Cardiovascular Cardiovascular: Denies chest pain and Denies dyspnea Respiratory Respiratory: Denies chest congestion, Reports cough and Denies dyspnea Gastrointestinal Gastrointestingal: Denies abdominal pain, diarrhea, nausea or vomiting Musculoskeletal Musculoskeletal: Denies arthralgias Integumentary/Breasts Skin/Breast: Denies rash Physical Exam General General appearance: alert and in no apparent distress Head Head exam: atraumatic, normocephalic and normal inspection Eye Eye exam: Present normal appearance; Absent PERRL or EOMI ENT ENT exam: Present mucous membranes moist and normal external ear exam Expanded ENT Exam TM/Canal exam: Bilateral TM: erythema, bulging and effusion Nose exam: Absent sinus tenderness Nasal speculum exam: Bilateral: normal Mouth exam: Present normal external inspection and other; Absent drooling Teeth exam: Present normal inspection Throat exam: Present tonsillar erythema and tonsillomegaly Neck Neck exam: Present normal inspection, full ROM and trachea midline; Absent tenderness, meningismus or lymphadenopathy Chest Chest inspection: Present normal inspection and symmetric chest wall rise; Absent tenderness Respiratory Respiratory exam: Present normal lung sounds bilaterally; Absent respiratory distress, wheezes or stridor Cardiovascular Cardiovascular exam: Present regular rate, normal rhythm and normal heart sounds; Absent tachycardia or irregular rhythm Abdominal Exam Abdominal exam: Present soft and normal bowel sounds; Absent distention, tenderness, guarding, rebound or rigidity Extremities Exam Extremities exam: Present normal inspection and normal capillary refill; Absent tenderness, joint swelling or calf tenderness Back Exam Back exam: Present normal inspection and full ROM; Absent tenderness, CVA tenderness (R) or CVA tenderness (L) Neurological Exam Neurological exam: Present alert, oriented X3, CN II-XII intact, normal gait and reflexes normal; Absent motor sensory deficit Psychiatric Psychiatric exam: Present normal affect and normal mood Skin Skin exam: Present warm, dry, intact and normal color Lymphatic Lymphatic Findings: no adenopathy Medical Decision Making Medical Records Medical records reviewed: No I reviewed the patient's medical records. Screening: Per USPSTF and CDC recommendations, given the prevalence of disease in our region, it is our hospital?s policy to screen for HIV and viral Hepatitis for all patients aged 18 and over and those with ongoing risk factors. Raheem Inquiry Pt receiving controlled substance: No Vital Signs: 03/05/24 16:00 Temperature 98.3 F Temperature Source Oral Pulse Rate [Left Brachial] 96 H Respiratory Rate 19 Blood Pressure [Left Arm] 167/107 H Blood Pressure Mean [Left Arm] 127 Blood Pressure Source [Left Arm] Automatic Cuff Blood Pressure Position [Left Arm] Sitting 02 Sat by Pulse Oximetry 98 Oxygen Delivery Method Room Air Lab Data Lab results reviewed: Yes I reviewed the patient's lab results.
[2024-03-05 16:40] VITALS: BP 167/107; PULSE 96; RESP 19; TEMP 36.8; O2SAT 98
== END 2024-03-05 16:43 | disposition home or self-care (01) ==
PROVIDERS: Emergency Provider Nurse Practitioner Family; PCP Family Medicine
DX: J32.9 Chronic sinusitis, unspecified (principal); H66.91 Otitis media, unspecified, right ear
CPT/HCPCS: 99213; G0381

== ENCOUNTER 2024-03-19 16:53 | Outpatient (CLI) | payer OTHER, SELFPAY ==
[2024-03-19 19:48] LABS: T4 (Thyroxine) 6.2 ug/dl (5.53-11.0); Triiodothryronine (T3) Uptake 33 % (23.5-40.5)
[2024-03-19 21:04] LABS: Thyroid Stimulating Hormone 1.39 uIU/mL (0.465-4.68)
== END 2024-03-19 23:59 | disposition home or self-care (01) ==
LOC: LAB 16:54
PROVIDERS: PCP Family Medicine; Visit Provider Obstetrics & Gynecology
DX: R53.83 Other fatigue (principal)
CPT/HCPCS: 36415; 84436; 84443; 84479

== ENCOUNTER 2024-04-08 12:45 | Outpatient (CLI) | payer OTHER, SELFPAY ==
--- NOTE | 2024-04-08 12:46 | US_ITS ---
FINAL REPORT TECHNIQUE: Sonographic images of the thyroid were obtained. CLINICAL HISTORY: enlarged thyroid COMPARISON: None FINDINGS: THYROID ULTRASOUND SIZE: Normal ECHOGENICITY: Homogeneous LESIONS: There are multiple small benign cysts noted measuring up to 4 mm. There is no evidence of neoplasm. OTHER: No additional findings. IMPRESSION: Unremarkable thyroid evaluation. Reviewed, Interpreted and Dictated by Massimo Larson MD Transcribed by Mora Grayson Authenticated and [facility]
== END 2024-04-08 23:59 | disposition home or self-care (01) ==
LOC: RAD 12:46
PROVIDERS: PCP Family Medicine; Visit Provider Family Medicine
DX: E04.9 Nontoxic goiter, unspecified (principal)
CPT/HCPCS: 76536

== ENCOUNTER 2024-08-12 09:01 | Outpatient (CLI) | payer OTHER, SELFPAY ==
[2024-08-12 18:49] LABS: Hematocrit 39.8 % (37.0-47.0); Hemoglobin 12.1 g/dL (12.2-16.2); Immature Granulocytes % 0.3 %; Mean Corpuscular HGB Conc 30.4 g/dL (31.8-35.4); Mean Corpuscular Hemoglobin 23.6 pg (27.0-31.2); Mean Corpuscular Volume 77.6 fl (81-99); Nucleated Red Blood Cells % 0 %; Platelet Count 286 K/mm3 (142-424); Red Blood Count 5.13 M/mm3 (4.20-5.40); Red Cell Distribution Width-SD 50.3 fL; White Blood Count 8.0 K/mm3 (4.8-10.8)
[2024-08-12 19:34] LABS: Alanine Aminotransferase 22 U/L (12-78); Albumin Level 4.6 g/dl (3.5-5.0); Albumin/Globulin Ratio 1.5 (1.1-1.8); Alkaline Phosphatase 96 U/L (38-126); Anion Gap 13.8 mEq/L (5-15); Aspartate Amino Transferase 27 U/L (14-36); Bilirubin,Total 0.4 mg/dl (0.2-1.3); Blood Urea Nitrogen 12 mg/dl (7-17); Calcium 9.6 mg/dl (8.4-10.2); Carbon Dioxide 26 mmol/L (22.0-30.0); Chloride 101 mmol/L (98-107); Cholesterol 153 mg/dl (140-200); Creatinine,Serum 1.10 mg/dl (0.52-1.04); Estimated Glomerular Filt Rate 54 ml/min (>60); GFR (African American) 65 ML/MIN (>60); Globulin 3.1 g/dL (1.3-3.2); Glucose 92 mg/dl (74-100); HDL Cholesterol 29 mg/dl (40-60); Potassium 3.8 mmoL/L (3.5-5.1); Sodium 137 mmol/L (136-145); Total Protein,Serum 7.7 g/dl (6.3-8.2); Triglycerides 364 mg/dl (30-150)
[2024-08-12 19:55] LABS: Free T4 (Free Thyroxine) 1.16 ng/dl (0.78-2.19)
[2024-08-12 20:05] LABS: Thyroid Stimulating Hormone 2.30 uIU/mL (0.465-4.68)
[2024-08-12 20:25] LABS: Hepatitis C Ab Qual. W/ RFX NEGATIVE (Negative)
[2024-08-15 08:10] LABS: Hepatitis B Surface Antigen Negative (Negative)
== END 2024-08-12 23:59 | disposition home or self-care (01) ==
LOC: LAB.DROPOF 08-16 10:38
PROVIDERS: PCP Family Medicine; Visit Provider Family Medicine
DX: Z11.59 Encounter for screening for other viral diseases (principal); E03.9 Hypothyroidism, unspecified; I10 Essential (primary) hypertension; R71.8 Other abnormality of red blood cells
CPT/HCPCS: 80053; 80061; 84439; 84443; 85025; 86803; 87340; 87389

== ENCOUNTER 2024-10-17 00:53 | Emergency (ER) | payer OTHER, SELFPAY ==
[2024-10-17 01:41] VITALS: BP 178/116; PULSE 99; RESP 16; TEMP 36.6; O2SAT 98; BMI 25.4
[2024-10-17] MEDS: BACITRACIN ZINC OINT 30GM TUBE TP (01:55)
[2024-10-17 02:01] VITALS: BP 118/74; PULSE 74; RESP 16; TEMP 36.6; O2SAT 98
--- NOTE | 2024-10-17 02:02 | HMH.EDGENADL ---
Discharge Plan Disposition Patient Disposition: Home, Self-Care Condition: Good Prescriptions Prescriptions: New cephalexin 500 mg capsule 500 mg PO Q6H 7 Days Qty: 28 0RF No Action gabapentin 600 mg tablet 600 mg PO TID Qty: 90 2RF amlodipine 5 mg tablet 5 mg PO DAILY Qty: 30 5RF cholecalciferol (vitamin D3) [Vitamin D3] 50 mcg (2,000 unit) capsule 50 mcg PO DAILY Qty: 30 5RF doxazosin 1 mg tablet 1 mg PO HS Qty: 30 5RF sertraline 50 mg tablet See Rx Instructions .ROUTE .COMPLEX Qty: 90 3RF Dose Instruction: TAKE 1 TABLET BY MOUTH AT BEDTIME FOR MOOD Rx Instructions: TAKE 1 TABLET BY MOUTH AT BEDTIME FOR MOOD trazodone 50 mg tablet See Rx Instructions .ROUTE .COMPLEX Qty: 90 3RF Dose Instruction: TAKE ONE TABLET BY MOUTH AT BEDTIME Rx Instructions: TAKE ONE TABLET BY MOUTH AT BEDTIME lorazepam 0.5 mg tablet 0.5 mg PO TID 30 Days Qty: 90 2RF levothyroxine 25 mcg capsule 25 mcg PO DAILY Qty: 30 2RF ferrous sulfate 325 mg (65 mg iron) tablet 325 mg PO DAILY Qty: 90 0RF ondansetron HCl 4 mg tablet 4 mg PO Q6H PRN (Reason: nausea and vomiting) Qty: 20 1RF atorvastatin 40 mg tablet 40 mg PO DAILY Qty: 30 2RF omeprazole 40 mg capsule,delayed release(DR/EC) See Rx Instructions .ROUTE .COMPLEX Qty: 90 5RF Dose Instruction: TAKE ONE CAPSULE BY MOUTH ONCE A DAY Rx Instructions: TAKE ONE CAPSULE BY MOUTH ONCE A DAY sodium,potassium,mag sulfates [Suprep Bowel Prep Kit] 17.5-3.13-1.6 gram recon soln See Rx Instructions PO .COMPLEX Qty: 354 0RF Rx Instructions: DILUTE; drink full amount early evening before AND next morning at least 4-5 hr before procedure; follow w 960 mL water PO benzonatate 100 mg capsule 100 mg PO TIDP PRN (Reason: Cough) Qty: 30 0RF Referrals Follow up/Referrals: Kwaku Elaine MD [Primary Care Provider, Family Practice] - See instructions Referral Note: Recheck finger cellulitis Activity Restrictions/Add. Instructions Additional Instructions/Restrictions: You were evaluated in the ER and are believed to be appropriate for discharge at this time. Take the prescribed antibiotics as directed, do not skip doses, do not stop taking them early. Your hand can be washed like normal in warm, soapy water. I recommend that you soak the fingertip in warm salt water 3-4 times a day to help with healing. After cleaning the wound gently with warm soapy water apply the provided bacitracin ointment. You should use this at least twice a day for the next week. Make an appointment with your primary care doctor for reevaluation in 3 days. Return to the ER with any new, worsening, or otherwise concerning symptoms. Clinical Impressions Clinical Impression: Cellulitis of left index finger Print Language Print Language: Lao Discharge ED Provider: Mark Rubi Adult HPI General Chief complaint: PAIN Stated complaint: Laceration L index finger, infection Time Seen by Provider: 10/17/24 01:48 Mode of Arrival: Ambulatory Source of Information: Patient Description of Symptoms (Recalled from ER Triage Doc. by RN): Pt presents to ED for L index finger pain. Pt states she got a paper cut approx 1 week ago and has been trying to clean and dress it at home. However, it is red and swollen at this time. Pt is A&O*4 and rates pain 4/10 at this time. History of Present Illness HPI narrative: 44-year-old female who smokes and has a history of hypertension presents to the ER with concerns of left index finger pain. Patient reports she had a small cut on it from work approximately 1 week ago and has been trying to take care of it at home but she states she has a history of problems with wound healing and despite keeping Neosporin on it it is still red and tender. She is worried that it is not healing well and she may have infection. She denies fevers or chills, she has full range of motion of the finger without pain, no numbness. She is not a diabetic. She states she has had good success with Keflex previously. No other complaints or concerns. Related Data Previous Rx's ?Medication ?Instructions ?Recorded benzonatate 100 mg capsule 100 mg PO TIDP PRN Cough #30 caps 03/05/24 amlodipine 5 mg tablet 5 mg PO DAILY #30 tabs 03/22/24 cholecalciferol (vitamin D3) 50 50 mcg PO DAILY #30 caps 02/10/25 mcg (2,000 unit) capsule (Vitamin D3) doxazosin 1 mg tablet 1 mg PO HS #30 tabs 03/22/24 sertraline 50 mg tablet See Rx Instructions .Route 03/22/24 .COMPLEX #90 tabs trazodone 50 mg tablet See Rx Instructions .Route 03/22/24 .COMPLEX #90 tabs levothyroxine 25 mcg capsule 25 mcg PO DAILY #30 caps 08/09/24 lorazepam 0.5 mg tablet 0.5 mg PO TID 30 days #90 tabs 08/09/24 gabapentin 600 mg tablet 600 mg PO TID #90 tabs 08/12/24 ferrous sulfate 325 mg (65 mg 325 mg PO DAILY #90 tabs 08/16/24 iron) tablet ondansetron HCl 4 mg tablet 4 mg PO Q6H PRN nausea and 08/18/24 vomiting #20 tabs atorvastatin 40 mg tablet 40 mg PO DAILY #30 tabs 08/19/24 omeprazole 40 mg capsule,delayed See Rx Instructions .Route 09/30/24 release .COMPLEX #90 caps sodium,potassium,mag sulfates 17.5 See Rx Instructions PO .COMPLEX 10/14/24 gram-3.13 gram-1.6 gram oral soln #354 mL (Suprep Bowel Prep Kit) cephalexin 500 mg capsule 500 mg PO Q6H 7 days #28 caps 10/17/24 Allergies Allergy/AdvReac Type Severity Reaction Status Date / Time lisinopril Allergy Other Verified 08/12/24 08:27 zonisamide (From Zonegran) Allergy Hives Verified 08/12/24 08:27 metoprolol (From Toprol XL) AdvReac Intermediate Other Verified 08/12/24 08:27 [facility] PFS Disclaimer: The information contained in this section may have been updated after the patient was seen, as this information can be updated by other users. Medical History (Updated 10/17/24 @ 01:49 by Mark Rubi MD) Breast cancer screening by mammogram Screening for colon cancer Hypothyroid Low back pain Enlarged thyroid MCC use of drug Abnormal uterine bleeding Severe dysplasia of cervix Screening for breast cancer Coronary artery disease Agatston coronary artery calcium score less than 100 Seizure disorder Anxiety and depression History of gastroesophageal reflux (GERD) Hypertension History of anemia Abnormal electrocardiogram [ECG] [EKG] Moderate aortic insufficiency Family history of early CAD Chronic kidney disease Hyperlipidemia Dyspnea Surgical History History of cholecystectomy History of bilateral salpingectomy Family History Other COPD (chronic obstructive pulmonary disease) Social History Smoking Status: Current every day smoker tobacco type: cigarettes packs per day: 1 second hand exposure: Yes alcohol intake: never substance use type: denies use current occupational status: employed Travel in the last 8 weeks?: None household members: spouse housing: apartment marital status: 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 current occupational exposures/hazards: No caffeine: Yes Have you lived/traveled outside US in past 30 days?: No Contact w/someone who lives/traveled outside US past 30 days?: No Exposure to someone with infectious disease in past 14 days?: No Do you have a fever (greater than 100.4 F or 38 C)?: No Have you tested positive for COVID-19?: No Exposed to someone with COVID-19 in past 14 days?: No Do you have a sore throat?: No Do you have a cough?: No Do you have any weakness?: No Do you have any diarrhea?: No Are you experiencing any unusual bleeding?: No Do you have any muscle aches/pain?: No Do you have any abdominal pain?: No Are you experiencing loss of taste or smell?: No Other Medical History Have you received the Flu Vaccine for this season: No Have you received the Pneumonia Vaccine: No ROS Obtained: Yes Systems reviewed as appropriate & no additional complaints except as documented Per HPI Physical Exam General General appearance: alert and in no apparent distress Head Head exam: atraumatic and normocephalic Eye Eye exam: Present PERRL and EOMI ENT ENT exam: Present mucous membranes moist Neck Neck exam: Present normal inspection and full ROM Chest Chest inspection: Present symmetric chest wall rise Respiratory Respiratory exam: Absent respiratory distress or stridor Cardiovascular Cardiovascular exam: Present regular rate and normal rhythm Extremities Exam Extremities exam: Present full ROM and normal capillary refill; Absent edema Expanded Upper Extremity Exam Left: Hand exam: Present tenderness (Distal tip left index finger with small wound with good granulation tissue, there is slight swelling with only trace induration, no fluctuance) and other (Full range of motion, 0 Kanavel signs) Hand L/R front image:  1. other (6 mm healing wound with surrounding erythema, trace induration but no fluctuance); negative nail injury (#), foreign body and amputation Neurological Exam Neurological exam: Present alert and oriented X3; Absent motor sensory deficit Psychiatric Psychiatric exam: Present normal affect and normal mood Skin Skin exam: Present warm and dry Medical Decision Making Medical Records Medical records reviewed: Yes I reviewed the patient's medical records. Screening: Per USPSTF and CDC recommendations, given the prevalence of disease in our region, it is our hospital?s policy to screen for HIV and viral Hepatitis for all patients aged 18 and over and those with ongoing risk factors. Raheem Inquiry Pt receiving controlled substance: No Vital Signs: 10/17/24 01:41 10/17/24 02:01 Temperature 97.9 F 97.9 F Temperature Source Oral Oral Pulse Rate 74 Pulse Rate [Left] 99 H Respiratory Rate 16 16 Blood Pressure 118/74 Blood Pressure [Right Arm] 178/116 H Blood Pressure Mean [Right Arm] 136 Blood Pressure Source Automatic Cuff Blood Pressure Position Sitting 02 Sat by Pulse Oximetry 98 Oxygen Delivery Method Room Air Room Air Orders (Tests/Meds): ED MEDICATIONS Discontinued Medications Generic Name Dose Route Start Last Admin Trade Name Sachaq PRN Reason Stop Dose Admin Bacitracin 1 gm 10/17/24 01:48 10/17/24 01:55 Bacitracin Zinc Oint 30gm Tube TP 10/17/24 01:49 1 applic ONCE ONE Administration Cephalexin HCl 500 mg 10/17/24 01:48 10/17/24 01:55 Cephalexin 500mg Capsule PO 10/17/24 01:49 500 mg ONCE ONE Administration Medical Decision Narrative: In summary, this 44-year-old female with comorbidities described in the HPI as well as social determinants of health including smoking which will likely compromise her healing presents to the emergency department today with small laceration to the distal tip of the left index finger that has been present for the last week and she is concerned for infection. On initial evaluation patient is hemodynamically stable, afebrile, overall physical exam is benign aside from small wound at the distal tip of the left index finger which has good granulation tissue, mild surrounding erythema and slight induration but no fluctuance. Differential diagnosis includes but is not limited to cellulitis, I considered abscess, paronychia, felon. I do not see any evidence of abscess, paronychia, or felon. No nail involvement. There is no evidence of flexor tenosynovitis or other deep tissue infection either. Clinical exam is most consistent with cellulitis. Patient has no systemic signs of infection and I do not believe she requires any labs or imaging at this time. Keflex administered in the ER and prescribed for outpatient management. Bacitracin applied to the wound and the bacitracin on it was provided to the patient for wound care. Patient was given instructions on symptomatic management, wound care, medication use, follow up instructions, and return precautions for the emergency department. Patient indicated understanding and was discharged in stable condition. Critical Care Critical Care Time Critical Care Time: No
== END 2024-10-17 02:02 | disposition home or self-care (01) ==
PROVIDERS: Emergency Provider Emergency Medicine; PCP Family Medicine
DX: L03.012 Cellulitis of left finger (principal); E78.5 Hyperlipidemia, unspecified; I10 Essential (primary) hypertension
CPT/HCPCS: 99282; 99283

== ENCOUNTER 2025-01-03 06:57 | Emergency (ER) | payer OTHER, SELFPAY ==
[2025-01-03] VITALS (7 sets, daily range): BP systolic 157–169; BP diastolic 101–111; PULSE 82–107; RESP 18–20; TEMP 36.7; O2SAT 96–99; BMI 25.6
--- OUTSIDE RECORDS SUMMARY | 2025-01-03 07:11 | XMS_ITS | Clinical Summary ---
Author Organization [facility] yste Address [address] [place] [address] Care Team Providers Care Upsetter Name Role Phone Unavailable Primary Care Provider Unavailabl e Social History Tobacco Use Types Packs/Day Years Used Date Smoking Tobacco: Never Assessed Abuse Screen Answer Date Recorded Unsafe at Home or Work/School Not on file Feels Threatened by Someone? Not on file 12/2022 Does Anyone Keep You from Co ntacting Others or Doint Things Outside the Home? Not on file 11/20/2022 Physical Sign of Abuse Present Not on file 1 Housing Stability Answer Date Recorded Current Living Arrangements Not on file 11/10 Potentially Unsafe Housing Conditions Not on gloria e 11/20/2022 Family and Community Support Answer Osito e Recorded Help with Day-to-Day Activities Not on file 11/20/2022 Lonely or Isolated Not on file 11/20/2022 Employment Answer Date Recorded Do you want help finding or keeping work or a abiodun b? Not on file 11/20/2022 Disabilities Answer Date Recorded Concentrating, Remembering, or Making Decisions Difficulty Not on file 11/20/2022 Doing Errands Independently Difficulty Not on fi le 11/20/2022 Education Answer Date Recorded Help with school or training? Not on file Preferred Language Not on file 11/20/2022 Comments Unknown Sex and Gender Information Value Date Recorded Sex Assigned at Not on file Legal Sex Female 11:46 AM EDT Gender Identity Not on file Sexual Orientation Not on file Last Filed Vital Signs Vital Sign Reading Time Taken Comments Blood Pressure 117/76 04/07/2013 9:25 AM EST Pulse - - Temperature - - Respiratory Rate - - Oxygen Saturation - - Inhaled Oxygen Concentration - - Weight 55.8 kg (122 lb 15.9 oz) 04/07/2013 9:25 AM EST Height 157.5 cm (5' 2 ) 04/07/2013 9:25 AM EST Body Mass Index 22.5 04/07/2013 9:25 AM EST Plan of Treatment Health Maintenance Due Date Last Done Comments ANNUAL PHYSICAL 1979 Annual Gynecologic Pelvic an d Breast Exam 1979 HEPATITIS C SCREENING 1979 TDAP/TD VACCINES (1 - Tdap) 07/06/1998 MAMMOGRAM 2019 COLOGUARD 07/06/2024 COLON CANCER SCREENING 5 YEA R SIGMOIDOSCOPY 07/06/2024 COLONOSCOPY 07/06/2024 COLORECTAL CANCER SCREENING 07/06/2024 CT COLONOGRAPHY 07/06/2024 FECAL OCCULT BLOOD TEST 07/06/2024 FIT Testing (1 year) 07/06/2024 INFLUENZA VACCINE 09/10/2024 Pneumococcal Vaccine 0-49 Aged Out No longer eligible based on patient's age to complete this topic
--- NOTE | 2025-01-03 07:14 | HMH.EDGENADL ---
Discharge Plan Disposition Patient Disposition: Home, Self-Care Prescriptions Prescriptions: New qdunqkiglzakntw-ewbrhkslo-GQ 2-30-10 mg/5 mL syrup 5 ml PO Q6H PRN (Reason: cold symptoms) 7 Days Qty: 118 0RF loperamide 2 mg capsule 2 mg PO Q6H PRN (Reason: loose stool) 5 Days Qty: 20 0RF Rx Instructions: Please take 4 mg initially, followed by 2 mg after each loose stool, maximum 16 mg/day ondansetron 4 mg tablet,disintegrating 4 mg PO Q6H PRN (Reason: nausea and vomiting) 5 Days Qty: 20 0RF No Action cholecalciferol (vitamin D3) [Vitamin D3] 50 mcg (2,000 unit) capsule 50 mcg PO DAILY Qty: 30 5RF doxazosin 1 mg tablet 1 mg PO HS Qty: 30 5RF lorazepam 0.5 mg tablet 0.5 mg PO TID 30 Days Qty: 90 2RF ferrous sulfate 325 mg (65 mg iron) tablet 325 mg PO DAILY Qty: 90 0RF ondansetron HCl 4 mg tablet 4 mg PO Q6H PRN (Reason: nausea and vomiting) Qty: 20 1RF atorvastatin 40 mg tablet 40 mg PO DAILY Qty: 30 2RF Sutab 1.479-0.188- 0.225 gram tablet See Rx Instructions PO PER PKG DIR Qty: 24 0RF Rx Instructions: at 6pm the night before procedure, swallow 1 tablet every 1-2 minutes. you should finish 12 tablets and entire 16 oz of water within 20 minutes. IMPORTANT: If you experience pre-related symptoms ( nausea, bloating or cramping) pause and slow the rate of drinking additional water until symptoms diminish. approximately one hour after the last tablet, drink 16 oz of water over 30 mins. then repeat 4 hours before procedure time. amlodipine 5 mg tablet See Rx Instructions .ROUTE .COMPLEX Qty: 90 0RF Dose Instruction: TAKE ONE TABLET BY MOUTH ONCE A DAY Rx Instructions: TAKE ONE TABLET BY MOUTH ONCE A DAY levothyroxine 25 mcg tablet See Rx Instructions .ROUTE .COMPLEX Qty: 90 0RF Dose Instruction: TAKE 1 TABLET BY MOUTH ONCE A DAY Rx Instructions: TAKE 1 TABLET BY MOUTH ONCE A DAY gabapentin 600 mg tablet 600 mg PO TID Qty: 90 2RF benzonatate 100 mg capsule 100 mg PO TIDP PRN (Reason: Cough) Qty: 30 0RF trazodone 50 mg tablet 50 mg PO DAILY Rx Instructions: TAKE ONE TABLET BY MOUTH AT BEDTIME omeprazole 40 mg capsule,delayed release(DR/EC) 40 mg PO DAILY Rx Instructions: TAKE ONE CAPSULE BY MOUTH ONCE A DAY sertraline 50 mg tablet 50 mg PO DAILY Rx Instructions: TAKE 1 TABLET BY MOUTH AT BEDTIME FOR MOOD cephalexin 500 mg capsule 500 mg PO Q6H 7 Days Qty: 28 0RF Referrals Follow up/Referrals: Kwaku Elaine MD [Primary Care Provider, Family Practice] - See instructions Activity Restrictions/Add. Instructions Additional Instructions/Restrictions: No emergent medical condition identified today your symptoms are consistent with a viral syndrome which should be self-limiting please take your symptomatic medications as prescribed keep your self well-hydrated return with any significant worsening of her symptoms. Clinical Impressions Clinical Impression: Viral syndrome Instructions Patient Instructions: Cough Print Language Print Language: [place] Island[place] Discharge ED Provider: Jorge L Amezcua General Adult HPI General Chief complaint: Cough Stated complaint: vomiting,coughing, congestion Time Seen by Provider: 01/03/25 07:11 Mode of Arrival: Ambulatory Source of Information: Patient Description of Symptoms (Recalled from ER Triage Doc. by RN): PATIENT PRESENTS TO ED FOR COUGH AND CONGESTION THAT BEGAN 2 DAYS AGO, HAS NOW PROGRESSED INTO VOMITING AND DIARRHEA. DENIES PAIN ANYWHERE. History of Present Illness HPI narrative: Patient is a 44-year-old presents today primarily for nausea vomiting diarrhea inability to keep anything down but states that few days preceding those symptoms she had cough and congestion that lasted for a few days. Denies any significant past medical history aside from hypertension. No significant pain associated with this. Related Data Home Medications ?Medication ?Instructions ?Recorded ?Confirmed omeprazole 40 mg capsule,delayed 40 mg PO DAILY 10/26/24 10/26/24 release sertraline 50 mg tablet 50 mg PO DAILY 10/26/24 10/26/24 trazodone 50 mg tablet 50 mg PO DAILY 10/26/24 10/26/24 Previous Rx's ?Medication ?Instructions ?Recorded benzonatate 100 mg capsule 100 mg PO TIDP PRN Cough #30 caps 03/05/24 cholecalciferol (vitamin D3) 50 50 mcg PO DAILY #30 caps 03/22/24 mcg (2,000 unit) capsule (Vitamin D3) doxazosin 1 mg tablet 1 mg PO HS #30 tabs 03/22/24 lorazepam 0.5 mg tablet 0.5 mg PO TID 30 days #90 tabs 08/09/24 ferrous sulfate 325 mg (65 mg 325 mg PO DAILY #90 tabs 08/16/24 iron) tablet ondansetron HCl 4 mg tablet 4 mg PO Q6H PRN nausea and 08/18/24 vomiting #20 tabs atorvastatin 40 mg tablet 40 mg PO DAILY #30 tabs 08/19/24 cephalexin 500 mg capsule 500 mg PO Q6H 7 days #28 caps 10/17/24 sodium sul 1.479 gram-potas ch See Rx Instructions PO PER PKG DIR 12/16/24 0.188 gram-magnes sul 0.225 gram colonscopy #24 tabs tablet (Sutab) amlodipine 5 mg tablet See Rx Instructions .Route 12/20/24 .COMPLEX #90 tabs levothyroxine 25 mcg tablet See Rx Instructions .Route 12/20/24 .COMPLEX #90 caps gabapentin 600 mg tablet 600 mg PO TID #90 tabs 12/28/24 moyrtixwiysxawg-dqxecxcdcteenue-PJ 5 ml PO Q6H PRN cold symptoms 7 01/03/25 2 mg-30 mg-10 mg/5 mL oral syrup days #118 mL loperamide 2 mg capsule 2 mg PO Q6H PRN loose stool 5 days 01/03/25 #20 caps ondansetron 4 mg disintegrating 4 mg PO Q6H PRN nausea and 01/03/25 tablet vomiting 5 days #20 tabs Allergies Allergy/AdvReac Type Severity Reaction Status Date / Time lisinopril Allergy Other Verified 08/12/24 08:27 zonisamide (From Zonegran) Allergy Hives Verified 08/12/24 08:27 metoprolol (From Toprol XL) AdvReac Intermediate Other Verified 08/12/24 08:27 [facility] Disclaimer: The information contained in this section may have been updated after the patient was seen, as this information can be updated by other users. 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 Abnormal uterine bleeding Severe dysplasia of cervix Screening for breast cancer Coronary artery disease [place] coronary artery calcium score less than 100 Seizure disorder Anxiety and depression History of gastroesophageal reflux (GERD) Hypertension History of anemia Abnormal electrocardiogram [ECG] [EKG] Moderate aortic insufficiency Family history of early CAD Chronic kidney disease Hyperlipidemia Dyspnea Surgical History History of cholecystectomy History of bilateral salpingectomy Family History Other COPD (chronic obstructive pulmonary disease) Social History Smoking Status: Current every day smoker tobacco type: cigarettes packs per day: 1 second hand exposure: Yes alcohol intake: never substance use type: denies use current occupational status: employed Travel in the last 8 weeks?: None household members: spouse housing: apartment marital status: 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 [employer] current occupational exposures/hazards: No caffeine: Yes Have you lived/traveled outside [place] in past 30 days?: No Contact w/someone who lives/traveled outside US past 30 days?: No Exposure to someone with infectious disease in past 14 days?: No Do you have a fever (greater than 100.4 F or 38 C)?: No Have you tested positive for COVID-19?: No Exposed to someone with COVID-19 in past 14 days?: No Do you have a sore throat?: No Do you have a cough?: No Do you have any weakness?: No Do you have any diarrhea?: No Are you experiencing any unusual bleeding?: No Do you have any muscle aches/pain?: No Do you have any abdominal pain?: No Are you experiencing loss of taste or smell?: No Other Medical History Have you received the Flu Vaccine for this season: No Have you received the Pneumonia Vaccine: No ROS Obtained: Yes All systems reviewed & no additional complaints except as documented Physical Exam General General appearance: alert and in no apparent distress Respiratory Respiratory exam: Present normal lung sounds bilaterally; Absent respiratory distress Cardiovascular Cardiovascular exam: Present regular rate and normal rhythm Abdominal Exam Abdominal exam: Present soft; Absent distention or tenderness Neurological Exam Neurological exam: Present alert and oriented X3 Medical Decision Making Medical Records Screening: Per USPSTF and CDC recommendations, given the prevalence of disease in our region, it is our hospital?s policy to screen for HIV and viral Hepatitis for all patients aged 18 and over and those with ongoing risk factors. Raheem Inquiry Pt receiving controlled substance: No Vital Signs: 01/03/25 07:02 01/03/25 07:05 01/03/25 07:05 Temperature 98.1 F 98.1 F Temperature Source Oral Pulse Rate 107 H 107 H Pulse Rate [Right] 107 H Respiratory Rate 20 20 Blood Pressure 161/111 H 161/111 H Blood Pressure [Right Arm] 161/111 H Blood Pressure Mean [Right Arm] 127 02 Sat by Pulse Oximetry 97 96 96 Oxygen Delivery Method Room Air 01/03/25 07:15 01/03/25 07:29 01/03/25 07:30 Temperature Temperature Source Pulse Rate 93 H 96 H 92 H Pulse Rate [Right] Respiratory Rate Blood Pressure 157/101 H 157/101 H 169/106 H Blood Pressure [Right Arm] Blood Pressure Mean [Right Arm] 02 Sat by Pulse Oximetry 97 99 97 Oxygen Delivery Method Room Air Room Air 01/03/25 07:45 Temperature Temperature Source Pulse Rate 82 Pulse Rate [Right] Respiratory Rate Blood Pressure 165/102 H Blood Pressure [Right Arm] Blood Pressure Mean [Right Arm] 02 Sat by Pulse Oximetry 97 Oxygen Delivery Method Room Air Lab Data Lab results reviewed: Yes I reviewed the patient's lab results. Lab Results 01/03/25 07:20: WBC 5.8, RBC 5.30, Hgb 12.9, Hct 40.6, MCV 76.6 L, MCH 24.3 L, MCHC 31.8, RDW 17.2, Plt Count 254, MPV 10.0, Neut % (Auto) 47.5, Lymph % (Auto) 41.5, [place] % (Auto) 7.4, Eos % (Auto) 2.6, Baso % (Auto) 0.7, Neut # (Auto) 2.8, Lymph # (Auto) 2.4, [place] # (Auto) 0.4, Eos # (Auto) 0.2, Baso # (Auto) 0.0, Sodium 136, Potassium 3.3 L, Chloride 105, Carbon Dioxide 24, Anion Gap 10.3, BUN 6 L, Creatinine 1.10 H, Estimated Creat Clear 65, Estimated GFR 54 L, Est GFR ( Amer) 65, Glucose 101 H, Calcium 9.3, Total Bilirubin 0.4, AST 32, ALT 26, Alkaline Phosphatase 94, Total Protein 8.2, Albumin 4.7, Globulin 3.5 H, Albumin/Globulin Ratio 1.3, Serum HCG, Qual Negative 01/03/25 07:20 01/03/25 07:20 Orders (Tests/Meds): ED MEDICATIONS Discontinued Medications Generic Name Dose Route Start Last Admin Trade Name Rehana PRN Reason Stop Dose Admin Lactated Ringer's 1,000 mls @ 999 mls/hr 01/03/25 07:15 01/03/25 08:44 Lactated Ringer's 1000 Ml Bag IV 01/03/25 08:15 Infused .Q1H1M TANO Infusion Ondansetron HCl 4 mg 01/03/25 07:13 01/03/25 07:31 Ondansetron 4mg/2ml Vial IV 01/03/25 07:14 4 mg ONCE ONE Administration ORDERS Category Date Time Status CBC w/Auto Diff [Complete Blood Count Auto Diff] Stat Lab 01/03/25 07:20 Completed CMP [Comprehensive Metabolic Panel] Stat Lab 01/03/25 07:20 Completed HCG Qualitative, Serum Stat Lab 01/03/25 07:20 Completed Rapid PCR Covid and Flu A/B Stat Lab 01/03/25 07:28 Received Medical Decision Narrative: 44-year-old female presenting today with what appears to be a viral syndrome with cough congestion nausea vomiting diarrhea. Her exam is benign she is not severely dehydrated from a clinical standpoint cardiovascular and pulmonary exam are normal. IV fluids nausea medicine have been administered will check for COVID and flu and basic electrolytes and reassess. Patient feeling much better on reassessment labs unremarkable tolerating p.o. symptomatic medication sent to her pharmacy working diagnosis viral syndrome return precautions emphasized Critical Care Critical Care Time Critical Care Time: No
[2025-01-03] MEDS: ONDANSETRON 4MG/2ML VIAL 4 MG IV (07:31)
[2025-01-03] MEDS: LACTATED RINGERS 1000ML 1,000 ML 999 ML IV (07:31)
[2025-01-03 07:34] LABS: Hematocrit 40.6 % (37.0-47.0); Hemoglobin 12.9 g/dL (12.2-16.2); Immature Granulocytes % 0.3 %; Mean Corpuscular HGB Conc 31.8 g/dL (31.8-35.4); Mean Corpuscular Hemoglobin 24.3 pg (27.0-31.2); Mean Corpuscular Volume 76.6 fl (81-99); Nucleated Red Blood Cells % 0 %; Platelet Count 254 K/mm3 (142-424); Red Blood Count 5.30 M/mm3 (4.20-5.40); Red Cell Distribution Width-SD 46.8 fL; White Blood Count 5.8 K/mm3 (4.8-10.8)
[2025-01-03 07:47] LABS: Alanine Aminotransferase 26 U/L (12-78); Albumin Level 4.7 g/dl (3.5-5.0); Albumin/Globulin Ratio 1.3 (1.1-1.8); Alkaline Phosphatase 94 U/L (38-126); Anion Gap 10.3 mEq/L (5-15); Aspartate Amino Transferase 32 U/L (14-36); Bilirubin,Total 0.4 mg/dl (0.2-1.3); Blood Urea Nitrogen 6 mg/dl (7-17); Calcium 9.3 mg/dl (8.4-10.2); Carbon Dioxide 24 mmol/L (22.0-30.0); Chloride 105 mmol/L (98-107); Creatinine Clearance Estimated 65 mL/min (50-200); Creatinine,Serum 1.10 mg/dl (0.52-1.04); Estimated Glomerular Filt Rate 54 ml/min (>60); GFR (African American) 65 ML/MIN (>60); Globulin 3.5 g/dL (1.3-3.2); Glucose 101 mg/dl (74-100); Potassium 3.3 mmoL/L (3.5-5.1); Sodium 136 mmol/L (136-145); Total Protein,Serum 8.2 g/dl (6.3-8.2)
[2025-01-03 07:50] LABS: HCG Qualitative, Serum Negative (Negative)
== END 2025-01-03 08:51 | disposition home or self-care (01) ==
PROVIDERS: Emergency Provider Student in an Organized Health Care Education/Training Program; PCP Family Medicine
DX: R11.2 Nausea with vomiting, unspecified (principal); B34.9 Viral infection, unspecified; I10 Essential (primary) hypertension; E78.5 Hyperlipidemia, unspecified; F17.210 Nicotine dependence, cigarettes, uncomplicated
CPT/HCPCS: 80053; 84703; 85025; 96361; 96374; 99284; 99285; J2405; J7120